=== PATIENT | male | born 1955 | race Caucasian/White ===

== ENCOUNTER 2022-05-28 11:21 | Inpatient (IN) ==
--- NOTE | 2022-05-28 11:36 | Emergency Department Note ---
History of Present Illness General Chief Complaint: Chest Pain Stated Complaint: chest pain Time Seen by Provider: 05/28/22 11:23 History of Present Illness Provider Complaint: chest pain Onset (ago): hour(s) (1.5) Duration: improved Onset: during rest Pain Location: substernal Pain Radiation: LUE Severity: similar to previous episodes (similar to previous [place]) Maximum Pain Intensity: 10 Current Pain Intensity: 1 Quality: + heaviness Relieved By: + nitroglycerin Exacerbated By: + nothing Context: no recent illness, no recent surgery, no recent immobilization, no recent travel, no trauma/injury or no new medications Associated symptoms: no nausea, no diaphoresis, no dyspnea, no sense of impending doom, no syncope, no palpitations, no fever, no cough or no leg swelling Treatments prior to arrival: aspirin and nitroglycerin Past Med/Surg History Medical History CAD (coronary artery disease) HLD (hyperlipidemia) HTN (hypertension) Surgical History H/O heart artery stent Family History Other Coronary heart disease Social History Smoking Status: Smoker, status unknown Review of Systems A total of 10 systems reviewed and were otherwise negative Physical Exam Vital Signs Vital Signs - 24 hr 05/28/22 11:33 05/28/22 11:42 05/28/22 11:42 Temperature 37 C Temperature Source Oral Pulse Rate 53 L Pulse Rate [Apical] 49 L Pulse Rhythm Pulse Rhythm [Apical] Regular Respiratory Rate 16 16 Respiratory Depth Normal Blood Pressure 162/86 H Blood Pressure [Left Arm] 164/89 H Blood Pressure Mean 111 Blood Pressure Mean [Left Arm] 114 Pulse Oximetry 95 95 95 Oxygen Delivery Method Room Air Room Air Room Air Oxygen Flow Rate 0 Sepsis Recent Fever Within 48 Hours No Sepsis New/Unexplained Change in Mental Status No Sepsis Action Taken by Nursing No Action Required 05/28/22 11:42 Temperature Temperature Source Pulse Rate 62 Pulse Rate [Apical] Pulse Rhythm Regular Pulse Rhythm [Apical] Respiratory Rate 16 Respiratory Depth Blood Pressure Blood Pressure [Left Arm] Blood Pressure Mean Blood Pressure Mean [Left Arm] Pulse Oximetry 95 Oxygen Delivery Method Room Air Oxygen Flow Rate Sepsis Recent Fever Within 48 Hours Sepsis New/Unexplained Change in Mental Status Sepsis Action Taken by Nursing Physical Exam GENERAL: He is oriented to person, place, and time. He appears well-developed and well-nourished. He does not appear distressed. HENT: Exam performed. - Head: Normocephalic and atraumatic. - Right Ear: External ear normal. No mastoid tenderness. - Left Ear: External ear normal. No mastoid tenderness. - Mouth/Throat: The oropharynx is clear and moist. No trismus in the jaw. No dental abscesses or uvula swelling. No oropharyngeal exudate or tonsillar abscesses. EYES: Conjunctivae and EOM are normal. Pupils are equal, round, and reactive to light. Right eye exhibits no discharge. Left eye exhibits no discharge. No scleral icterus. NECK: Normal range of motion. Neck supple. No JVD present. No spinous process tenderness present. No carotid bruit present. No rigidity. No tracheal deviation and normal range of motion present. No Brudzinski's sign and no Kernig's sign noted. CV: Normal rate, regular rhythm, normal heart sounds and intact distal pulses. There is no peripheral edema. Palpable radial pulses bue. PULM/CHEST: Effort normal and breath sounds normal. No respiratory distress. No stridor. He has no wheezes. He has no rales. - Chest Wall: He exhibits no tenderness. ABD: The abdomen is soft. Bowel sounds are normal. He has no distension. No mass is present. There is no tenderness. There is no rebound, no guarding, no M urphy's sign and no tenderness at McBurney's point. Rovsig negative. MUSC/SKEL: Normal range of motion. There is no peripheral edema, tenderness or deformity. LYMPH: No cervical adenopathy. NEURO: He is alert and oriented to person, place, and time. He has normal strength. No cranial nerve deficit or sensory deficit. Coordination and gait normal. GCS eye subscore is 4. GCS verbal subscore is 5. GCS motor subscore is 6. Cerebellar tests wnl. SKIN: Skin is warm and dry. He is not diaphoretic. PSYCH: He has a normal mood and affect. Behavior is normal. Judgment and thought content normal. Course Course 1123: The patient was evaluated in room B6. A complete history and physical exam was performed Cardiac monitoring: An order was placed for continuous cardiac monitoring. The monitor shows a rate of 50 with sinus rhythm 1255: Vital signs stable. Labs within normal limits with exception of high- sensitivity troponin minimally elevated 20.3. Patient has a high heart score. [facility] Yunior ARCE notified to admit to Dr. Tripp team. HEART Score for Major Cardiac Events from [email or web address] on 05/28/2022 All calculations should be rechecked by clinician prior to use RESULT SUMMARY: 8 points High Score (7-10 points) Risk of MACE of 50-65%. INPUTS: History > 2 = Highly suspicious EKG > 1 = Non-specific repolarization disturbance Age > 2 = >=5 Risk factors > 2 = >= risk factors or history of atherosclerotic disease Initial troponin > 1 = 13 normal limit Medical Decision Making Laboratory Data Result diagrams: 05/28/22 11:30 05/28/22 11:30 Labs: Lab Results 05/28/22 05/28/22 05/28/22 Range/Units 11:30 11:30 11:43 WBC 8.04 (4.8-10.8) K/ul RBC 3.91 L (4.63-6.08) M/uL Hgb 11.9 L (14.0-18.0) g/dl Hct 36.2 L (40.1-51.0) % MCV 92.6 (80.0-100.0) fL MCH 30.4 (25.0-34.0) pg MCHC 32.9 (32.0-36.0) g/dL RDW Std Deviation 45.7 (36.4-46.3) fL RDW Coeff of Belen 13.3 (11.5-14.5) % Plt Count 200 (130-400) K/uL MPV 9.4 (9.4-12.4) fL Immature Gran % (Auto) 0.4 % Neut % (Auto) 77.9 % Lymph % (Auto) 14.8 % Hart % (Auto) 5.8 % Eos % (Auto) 0.6 % Baso % (Auto) 0.5 % Neut # (Auto) 6.26 (1.4-6.5) K/uL Lymph # (Auto) 1.19 L (1.2-3.4) K/uL Hart # (Auto) 0.47 (0.24-0.82) K/uL Eos # (Auto) 0.05 (0-0.50) K/uL Baso # (Auto) 0.04 (0-0.2) K/uL Immature Gran # (Auto) 0.03 H (0.00-0.02) K/uL Sodium 138 (136-145) mmol/L Potassium 3.7 (3.5-5.1) mmol/L Chloride 110 H (98-107) mmol/L Carbon Dioxide 21 (21-32) mmol/L Anion Gap 7 (3-11) BUN 11 (6-23) mg/dl Creatinine 0.75 (0.6-1.4) mg/dl Est Cr Clr Drug Dosing 81.9 ml/min Est GFR ( Amer) 111.6 ml/min Est GFR (Non-Af Amer) 96.3 ml/min BUN/Creatinine Ratio 14.7 (10-20) Glucose 87 (70-99(Fasting)) mg/dl Calcium 8.0 L (8.5-10.1) mg/dl Troponin I High Sens 20.3 H (0-20) pg/ml Lipase 11 (11-82) U/L SARS-CoV-2, RNA, NAAT NEGATIVE (NEGATIVE) Imaging Data Chest x-ray: Radiologist's impression: Chest X-Ray 05/28/22 11:29 XR chest 1V portable CLINICAL HISTORY: Chest Pain. COMPARISON STUDY: No previous studies for comparison. TECHNIQUE: 1 view of the chest FINDINGS: Single frontal view of the chest demonstrates the cardiomediastinal silhouette to be within normal limits. The lungs are clear of alveolar opacities. There is no evidence for pleural effusion. There is no evidence for vascular congestion. There is no acute osseous pathology. IMPRESSION: 1. No acute cardiopulmonary disease. ACT 112: Negative or not required by law. Electronically signed by: Richar Morelos M.D. 05/28/2022 12:20 PM ECG Data Additional Comments: EKG #1 at 1128: Sinus bradycardia with a rate of 53. NJ QRS and QTc intervals within normal limits. No ST elevation or ST depression. EKG #2 at 1142: Sinus rhythm with rate of 52. NJ QRS and QTc intervals are within normal limits. No ST elevation or ST depression. [facility] Narrative 1123: The patient was evaluated in room B6. A complete history and physical exam was performed Cardiac monitoring: An order was placed for continuous cardiac monitoring. The monitor shows a rate of 50 with sinus rhythm 1255: Vital signs stable. Labs within normal limits with exception of high- sensitivity troponin minimally elevated 20.3. Patient has a high heart score. Patient will be admitted to the [facility] hospitalist team Yunior ARCE notified to admit to Dr. Tripp team. HEART Score for Major Cardiac Events from [email or web address] on 05/28/2022 All calculations should be rechecked by clinician prior to use RESULT SUMMARY: 8 points High Score (7-10 points) Risk of MACE of 50-65%. INPUTS: History > 2 = Highly suspicious EKG > 1 = Non-specific repolarization disturbance Age > 2 = >=5 Risk factors > 2 = >= risk factors or history of atherosclerotic disease Initial troponin > 1 = 13 normal limit Impression & Plan Chest pain Discharge Plan Visit Data Chief Complaint: Chest Pain Stated Complaint: chest pain ED Provider: Ramez Hidalgo Discharge Problem: Chest pain Patient Disposition: Admitted As Inpatient Forms Stand Alone Forms: My [facility] Referrals Referrals: PCP,NO [Primary Care Provider] -
[2022-05-28 11:50] LABS: Basophils # (auto) 0.04 K/uL (0-0.2); Basophils % (auto) 0.5 %; Eosinophils # (auto) 0.05 K/uL (0-0.50); Eosinophils % (auto) 0.6 %; Hematocrit (blood only) 36.2 % (40.1-51.0); Hemoglobin 11.9 g/dl (14.0-18.0); Immature Granulocytes # (auto) 0.03 K/uL (0.00-0.02); Immature Granulocytes % (auto) 0.4 %; Lymphocytes # (auto) 1.19 K/uL (1.2-3.4); Lymphocytes % (auto) 14.8 %; Mean Corpuscular Hemoglobin 30.4 pg (25.0-34.0); Mean Corpuscular Hgb Conc 32.9 g/dL (32.0-36.0); Mean Corpuscular Volume 92.6 fL (80.0-100.0); Mean Platelet Volume 9.4 fL (9.4-12.4); Monocytes # (auto) 0.47 K/uL (0.24-0.82); Monocytes % (auto) 5.8 %; Neutrophils # (auto) 6.26 K/uL (1.4-6.5); Neutrophils % (auto) 77.9 %; Platelet Count 200 K/uL (130-400); RDW Coefficient of Variation 13.3 % (11.5-14.5); RDW Standard Deviation 45.7 fL (36.4-46.3); Red Blood Count 3.91 M/uL (4.63-6.08); White Blood Count 8.04 K/ul (4.8-10.8)
[2022-05-28 12:11] LABS: BUN Creatinine Ratio 14.7 (10-20); Creatinine Clr Calc Pharmacy 81.9 ml/min; Est GFR (African American) 111.6 ml/min; Est GFR (Non-African American) 96.3 ml/min; Potassium 3.7 mmol/L (3.5-5.1)
[2022-05-28 12:16] LABS: Troponin I High Sensitivity 20.3 pg/ml (0-20)
--- NOTE | 2022-05-28 12:22 | XRay Report ---
XR chest 1V portable CLINICAL HISTORY: Chest Pain. COMPARISON STUDY: No previous studies for comparison. TECHNIQUE: 1 view of the chest FINDINGS: Single frontal view of the chest demonstrates the cardiomediastinal silhouette to be within normal li mits. The lungs are clear of alveolar opacities. There is no evidence for pleural effusion. There is no evidence for vascular congestion. There is no acute osseous pathology. IMPRESSION: 1. No acute cardiopulmonary disease. ACT 112: Negative or not required by law. Electronically signed by: Richar Morelos M.D. 05/28/2022 12:20 PM
--- NOTE | 2022-05-28 13:50 | History & Physical Report ---
Date of Service May 28, 2022 Assessment & Plan (1) Chest pain: Plan: Patient presents with chest pain that occurred at rest with burning sensation and has some reproducible aspects to it at this time. - DDX: angina vs unstable angina- peak onset at 10-1030 am vs. non cardiac chest pain (MSK/GI) - ECHO now to evaluate for RWMA - Trend HScTNI and ECG - Repeat HScTNI 259.4 4 at 4 hours post maximal pain - GI cocktail now - HScTNI increased ECG without acute changes- Heparin infusion - Consult Cardiology- appreciate assistance - Likely Cath in AM - NPO after midnight Continue Metoprolol (2) Elevated troponin: Plan: Second HScTNI elevated to 259.4 from 23 - ECG without STEMI - NSTEMI likely continue to trend ECG and HScTNI - As above (3) CAD (coronary artery disease): Plan: CAD- cath report obtained [facility] attached to hard chart- 11/04/2016 - Stent noted to RCA - is on Eliquis with no other antiplatelet medication - continue BP control - 70% D1 60% LAD with otherwise interpreted as minor luminal irregularities. 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 Will place consult to Case Management to assist with PCP History of Present Illness Primary Care Provider: NO PCP 67 YOM with medical history of: CAD, DE with stent to "right side x2" approx 15 years ago, blood clots to right leg "8 or 9" and is on Eliquis, spinal surgery 04/10, HTN, HLD, current every day smoker. Patient is not from the area so have no records to review at this time. Do not have any other ECG or ECHO available for review. Patient came to the EMD today for complaints of chest pain that s tarted around 930 or 1000 this morning while he was sitting and watching TV. Reports that it originally started as a burning sensation in his throat and then turned into a pressure and pain in the center of his chest radiating out to each side. No radiation to back or into the shoulders or down the arm. Was not associated with n/v, diaphoresis, jaw pain. He rated the pain as a pressure that increased in intensity to 7-8. He called EMS and was given [address] to the EMD and aspirin. He now feels that it just "hurts" and has some reproducible aspect but states this is not what it felt like this morning. He was given Morphine in the EMD which he feels made the pain go away. He had routine labs performed to include HScTNI, ECG, and CXR. His ECG has non specific ST changes. His HScTNI was drawn at 1100 and was 20.3. Hospitalist service was consulted for admission. Will obtain ECHO now, repeat his HScTNI. He follows with [facility] in [place] [phone]. Have reached out to get his records faxed over. Will admit to PCU telemetry for rule out DE and further risk stratify. Patient will be moving to the area, so likely will need Primary Care and Cardiology physicians upon discharge. COVID test on admission is: NEGATIVE Allergies Allergy/AdvReac Type Severity Reaction Status Date / Time No Known Allergies Allergy Unverified 05/28/22 13:51 Home Medications Medication Instructions Recorded Confirmed Type apixaban 2.5 mg tablet (Eliquis) 2.5 mg PO BID 05/28/22 05/28/22 History aspirin 81 mg tablet,delayed 324 mg PO .TODAY 05/28/22 05/28/22 History release divalproex 500 mg tablet,delayed 500 mg PO Q12 05/28/22 05/28/22 History release ferrous sulfate 325 mg (65 mg 325 mg PO DAILY 05/28/22 05/28/22 History iron) tablet (FeroSul) ketorolac 10 mg tablet 10 mg PO Q6H PRN Pain 05/28/22 05/28/22 History metoprolol succinate 25 mg 25 mg PO DAILY 05/28/22 05/28/22 History tablet,extended release 24 hr oxycodone 5 mg tablet 5 mg PO Q8H PRN Pain 05/28/22 05/28/22 History pramipexole 1.5 mg tablet (Mirapex) 1.5 mg PO TID 05/28/22 05/28/22 History Past Med/Surg History Medical History (Updated 05/28/22 @ 15:37 by BRY Pham) CAD (coronary artery disease) Chronic low back pain DVT (deep venous thrombosis) HLD (hyperlipidemia) HTN (hypertension) Neuropathy Surgical History (Updated 05/28/22 @ 14:57 by BRY Pham) H/O heart artery stent H/O total knee replacement Previous back surgery Family History Other Coronary heart disease Social History (Updated 05/28/22 @ 14:58 by BRY Pham) Smoking Status: Smoker, status unknown Tobacco Type: Cigarettes and Cigars packs per day: 0.5; Years Smoked: 20; Cigarettes Per Day: 10; Second Hand Exposure: Yes; Do You Dip or Chew Tobacco: No; Hx Alcohol Use: No Hx Substance Use: No Preferred Language: Bengali Communication Ability: Effective Tilting Head Band Sawyer Required: No Beliefs That Will Affect Care: None Current Living Situation: Significant Other Other Information That Helps Us Care for You: No Feels Safe at Home: Yes Safety Concerns: Feels Safe At This Time Review of Systems Review of Systems: REVIEW OF SYSTEMS: Constitutional: No fever, sweats or chills Eyes: No diplopia, no worsening or blurred vision ENT: normal hearing, no trouble swallowing Respiratory: No cough, sputum, dyspnea at rest or on exertion Cardiovascular: (+) chest pain, tightness or palpitations Abdomen: No pain, nausea, vomiting, diarrhea or constipation Musculoskeletal: No joint pain, calf pain, swelling Neurologic: (+) RLS, neuropathy to leg and feet weakness, numbness/tingling, or balance problems Psychiatric: No anxiety or depression Skin: No rash or itch Physical Exam Physical Exam: PHYSICAL EXAM: General: awake, alert, no apparent distress Head: Normocephalic, atraumatic ENT: PERRL, EOMI, no pharyngeal exudate, mucous membranes moist Neuro: AAO x 3, speech clear and appropriate, strength intact bilaterally 5/5, sensation intact and equal all extremities and dermatomes, no pronator drift Chest: equal rise and fall of the chest, no accessory muscle use, no heaves or thrills, Clear to auscultation, on room air, Cardiac: Regular rate and rhythm, telemetry reviewed- sinus to sinus carlos, skin warm dry, cap refill <3 seconds, peripheral pulses +2 no JVD, no murmur, no edema GI: NABS x 4 quadrants, soft, nontender to palpation, no rebound, guarding or tenderness : Spontaneously voiding, no pain, no CVA tenderness, MSK: Chest pain reproducible at this time 2-3 intercostal, pain that he had this morning has not returned Psych: Normal mood and affect Skin: no rash or erythema Results & Data Results & Data ([facility]) Vital Signs (Past 12 Hours) Vital Signs Temp Pulse Pulse Resp BP BP Pulse Ox 05/28/22 11:42 62 16 95 05/28/22 11:42 49 L 16 164/89 H 95 05/28/22 11:42 95 05/28/22 11:33 37 C 53 L 16 162/86 H 95 O2 Del Method O2 Flow Rate 05/28/22 11:42 Room Air 05/28/22 11:42 Room Air 05/28/22 11:42 Room Air 0 05/28/22 11:33 Room Air Laboratory Results Abnormal lab results 05/28/22 05/28/22 Range/Units 11:30 11:30 RBC 3.91 L (4.63-6.08) M/uL Hgb 11.9 L (14.0-18.0) g/dl Hct 36.2 L (40.1-51.0) % Lymph # (Auto) 1.19 L (1.2-3.4) K/uL Immature Gran # (Auto) 0.03 H (0.00-0.02) K/uL Chloride 110 H (98-107) mmol/L Calcium 8.0 L (8.5-10.1) mg/dl Troponin I High Sens 20.3 H (0-20) pg/ml Diagnostic Findings Chest X-Ray 05/28/22 11:29 XR chest 1V portable CLINICAL HISTORY: Chest Pain. COMPARISON STUDY: No previous studies for comparison. TECHNIQUE: 1 view of the chest FINDINGS: Single frontal view of the chest demonstrates the cardiomediastinal silhouette to be within normal limits. The lungs are clear of alveolar opacities. There is no evidence for pleural effusion. There is no evidence for vascular congestion. There is no acute osseous pathology. IMPRESSION: 1. No acute cardiopulmonary disease. ACT 112: Negative or not required by law. Electronically signed by: Richar Morelos M.D. 05/28/2022 12:20 PM Medications Administered Home Medications apixaban 2.5 mg tablet (Eliquis) 2.5 mg PO BID 05/28/22 [History Confirmed 0 05/28/22] aspirin 81 mg tablet,delayed release 324 mg PO .TODAY 05/28/22 [History Confirmed 05/28/22] divalproex 500 mg tablet,delayed release 500 mg PO Q12 05/28/22 [History Confirmed 05/28/22] ferrous sulfate 325 mg (65 mg iron) tablet (FeroSul) 325 mg PO DAILY 05/28/22 [History Confirmed 05/28/22] ketorolac 10 mg tablet 10 mg PO Q6H PRN Pain 05/28/22 [History Confirmed 05/28/22] metoprolol succinate 25 mg tablet,extended release 24 hr 25 mg PO DAILY 05/28/22 [History Confirmed 05/28/22] oxycodone 5 mg tablet 5 mg PO Q8H PRN Pain 05/28/22 [History Confirmed 05/28/22] pramipexole 1.5 mg tablet (Mirapex) 1.5 mg PO TID 05/28/22 [History Confirmed 05/28/22] Active Medications Acetaminophen (Acetaminophen 325 Mg Tab) 650 mg PO Q4H PRN PRN Reason: Pain or Fever Stop: 06/27/22 14:01 Apixaban (Apixaban 2.5 Mg Tab) 2.5 mg PO BID [facility] Stop: 06/27/22 20:59 Aspirin (Aspirin 81 Mg Ectab) 81 mg PO QAM [facility] Stop: 06/28/22 08:59 Divalproex Sodium (Divalproex Delay Release 500 Mg Tab) 500 mg PO Q12 [facility] Stop: 06/27/22 20:59 Ketorolac Tromethamine (Ketorolac Tromethamine 10 Mg Tablet) 10 mg PO Q6H PRN PRN Reason: Pain Stop: 06/02/22 14:27 Metoprolol Succinate (Metoprolol Succ 25mg Ext Rel Tab) 25 mg PO DAILY [facility] Stop: 06/27/22 14:29 Nitroglycerin (Nitroglycerin Sl 0.4 Mg/Tab Tab) 0.4 mg SL UD PRN PRN Reason: Chest Pain Stop: 06/27/22 14:01 Oxycodone HCl (Oxycodone Hcl Ir 5 Mg Tab (Immediate Release)) 5 mg PO Q8H PRN PRN Reason: Pain Stop: 06/11/22 14:27 Pantoprazole Sodium (Pantoprazole 40 Mg Tab) 40 mg PO QAM [facility] Stop: 06/27/22 14:29 Pramipexole Dihydrochloride (Pramipexole Dihydrochlo 0.5 Mg Tab) 1.5 mg PO TID [facility] Stop: 06/27/22 20:59 ECG Additional Comments: Sinus bradycardia Nonspecific ST abnormality Abnormal ECG No previous ECGs available Sinus bradycardia Incomplete right bundle branch block Cannot rule out Anterior infarct , age undetermined Abnormal ECG When compared with ECG of 28-MAY-2022 11:42, (unconfirmed) No significant change was found- 28-MAY-2022 15:14:10 Code Status & VTE Plan Code Status CODE: DNR/DNI VTE: SCDs/Eliquis Supervising Physician Co-Signing Physician Notes Reviewed documentation and work-up, discussed with UMBRELLA SUPERVISOR. Agree with his note above. Patient is here for chest pain. We did obtain old records from [facility] as patient had a cardiac catheterization earlier this year, had multiple areas of atherosclerotic plaques as noted in the report. Patient had 2 sets of troponins, the second is markedly elevated. Plan to start heparin drip, cardiology is aware with plans for repeat cardiac catheterization in the morning. Continue other care as documented above. PG Care Time/CCT Total # of Minutes Spent Total Time Spent with Patient: Total time spent is greater than 50% in coordination of care (as documented) at patient's floor/unit and/or counseling patient: Coding Level of Care Code INT OBSERVATION CARE 70M LVL 3 Diagnoses Chest pain R07.9 Chest pain type: unspecified Elevated troponin R77.8 CAD (coronary artery disease) I25.10 HLD (hyperlipidemia) E78.5 HTN (hypertension) I10 Chronic low back pain M54.50; G89.29 Neuropathy G62.9 DVT (deep venous thrombosis) I82.409 (1) Chest pain Chest pain type: unspecified Qualified Code(s): R07.9 - Chest pain, unspecified
[2022-05-28] MEDS ORDERED: NITROGLYCERIN SL 0.4 MG/TAB TAB SL PRN (14:02)
[2022-05-28] MEDS ORDERED: ACETAMINOPHEN 325 MG TAB PO PRN (14:02)
[2022-05-28] MEDS ORDERED: APIXABAN 2.5 MG TAB PO ONE (14:26)
[2022-05-28] MEDS ORDERED: KETOROLAC TROMETHAMINE 10 MG TABLET PO PRN (14:28)
[2022-05-28] MEDS ORDERED: oxyCODONE HCL IR 5 MG TAB (IMMEDIATE RELEASE) PO PRN (14:28)
[2022-05-28] MEDS ORDERED: ALUMINUM/MAGNESIUM SUSP 18 ML, LIDOCAINE VISCOUS 2% SOLN 6 ML, BARCODE IDENTIFIER 1 EACH PO ONE (14:29)
[2022-05-28] MEDS ORDERED: METOPROLOL SUCC 25MG EXT REL TAB PO SCH (14:30)
[2022-05-28] MEDS ORDERED: ASPIRIN 81 MG ECTAB PO SCH (14:30)
[2022-05-28] MEDS ORDERED: GI COCKTAIL ED USE PO ONE (14:45)
[2022-05-28] MEDS ORDERED: Heparin IV Adult Wt-Based Low-Dose WITH Bolus Protocol IV SCH (15:10)
[2022-05-28] MEDS ORDERED: NITROGLYCERIN 2% OINTMENT 30GM TUBE EXT SCH (16:30)
[2022-05-28] MEDS ORDERED: HEPARIN SOD (PORCINE) 1000 UNIT/ML IV ONE (16:45)
[2022-05-28] MEDS ORDERED: HEPARIN SODIUM/DEXTROSE 25,000 UNITS/500 ML BAG IV SCH (16:45)
[2022-05-28] MEDS: PANTOprazole 40 MG TAB PO SCH (16:55)
--- NOTE | 2022-05-28 17:08 | Cardiology Consultation ---
Date of Consultation May 28, 2022 Assessment & Plan (1) Acute coronary syndrome: (2) Elevated troponin: (3) CAD (coronary artery disease): (4) H/O heart artery stent: (5) HTN (hypertension): (6) HLD (hyperlipidemia): (7) Tobacco abuse: Plan ASSESSMENT/PLAN: 1. Acute coronary syndrome: Presentation consistent with acute coronary syndrome. Still has low level angina but much improved. Recommend nitroglycerin paste and heparin drip to start immediately. Continue aspirin. High-intensity statin therapy. Had minor inferior ST elevation initially which has since resolved. Recommend cardiac catheterization. Risks and benefits discussed with him in detail. He was made aware that CT surgery is not available at this facility. Would recommend urgent cardiac catheterization if continues to have chest discomfort despite medical therapy. Otherwise, cardiac catheterization will likely be performed tomorrow as he is still within 24 hours of his most recent dose of Eliquis. 2. CAD s/p prior RCA PCI: Continue medical therapy as above. He has not been taking aspirin. Recommend aspirin 81 mg daily indefinitely given prior PCI. Continue beta-drew. Recommend BARB-inhibitor. Recommend high-intensity statin therapy. Start Crestor 40 mg daily. 3. Hypertension: Blood pressure elevated. Blood pressure should improve with nitroglycerin paste. Consider BARB-inhibitor. 4. Dyslipidemia: Will initiate high-intensity statin therapy. Goal LDL < 70. 5. Tobacco abuse: Recommended that he stop smoking. 6. Disposition: Cardiology will continue to follow along. Patient care discussed with hospitalist service, Yosi Pulido. Highly complex medical issues. Thank you for allowing me to participate in the care of your patient. Please call for any other questions or concerns. Sincerely, José Miguel López M.D. History of Present Illness Reason for Consultation: Chest pain and elevated troponin Requesting Physician: Giovanny Tripp DO Attending Physician: Giovanny Tripp DO History of Present Illness Mr. Naqvi is a very pleasant 67-year-old gentleman with history significant for CAD s/p RCA PCI x 2, myocardial infarction, hypertension, dyslipidemia, tobacco abuse, and right lower extremity DVT on long-term anticoagulation therapy. He recently moved to this area from [place]. He received his cardiology care at [facility] in [place], [place]. He states that he had myocardial infarction x2 in approximately 1999. He received a stent each time, stating that it was in the same blood vessel. He has stent cards however they were not available at the time of this consultation. He had been on Crestor in the past and tolerated it well but states that with insurance changes and changing in physicians, he has not been on a statin for approximately 3 years. He has not been on aspirin for a few years as well. He is on long-term anticoagulation therapy for right lower extremity DVTs following a left leg surgery. He states that he was seen by Hematology. He does not recall much detail about the symptoms involving prior ND. This morning while in bed at approximately 10:00 a.m., he developed a substernal chest discomfort that radiated across his chest. It began as a burning sensation, transition to a sharp pain and then a pressure pain. He states that the pressure was intense. It was associated with diaphoresis and shortness of breath. He called EMS and received nitroglycerin x2 without improvement. He had a third nitroglycerin with some improvement, a fourth with even more improvement and then 2 sprays which nearly resolved the pain. Morphine in the emergency department also helped but he has had constant pain since approximately 10:00 a.m., currently rating 1 or 2/10. He denies syncope, near-syncope, melena, hematochezia, hematuria, orthopnea, palpitations, edema, or recent exertional symptoms. He has had the following studies/procedures: 1. Cardiac catheterization and RCA PCI x2 approximately 20 years ago during separate procedures in the setting of myocardial infarction. 2. Cardiac catheterization 11/04/2016 [facility] ([place], [place]): Mid LAD 60%. D1 ostial 75%. Proximal RCA stent with 30% in stent restenoses. Mid RCA stent 30%. EF 55%. Review of systems: As above. Review of systems otherwise negative/unremarkable. Family history: No known premature CAD. Social history: Started smoking at approximately 19 years of age. Smoked up to 1 pack per day, currently smoking 5-10 cigarettes per day and occasional cigars. No significant alcohol consumption. He is . He lives with his girlfriend. Recently moved to this area from [place], [place] and is looking for a home. He is retired from [employer] the [employer]. He has 5 children. He was unaccompanied in the emergency department. Allergies Allergy/AdvReac Type Severity Reaction Status Date / Time No Known Allergies Allergy Unverified 05/28/22 13:51 Home Medications Medication Instructions Recorded Confirmed Type apixaban 2.5 mg tablet (Eliquis) 2.5 mg PO BID 05/28/22 05/28/22 History aspirin 81 mg tablet,delayed 324 mg PO .TODAY 05/28/22 05/28/22 History release divalproex 500 mg tablet,delayed 500 mg PO Q12 05/28/22 05/28/22 History release ferrous sulfate 325 mg (65 mg 325 mg PO DAILY 05/28/22 05/28/22 History iron) tablet (FeroSul) ketorolac 10 mg tablet 10 mg PO Q6H PRN Pain 05/28/22 05/28/22 History metoprolol succinate 25 mg 25 mg PO DAILY 05/28/22 05/28/22 History tablet,extended release 24 hr oxycodone 5 mg tablet 5 mg PO Q8H PRN Pain 05/28/22 05/28/22 History pramipexole 1.5 mg tablet (Mirapex) 1.5 mg PO TID 05/28/22 05/28/22 History Patient History Medical History (Updated 05/28/22 @ 17:35 by Rajiv López MD) CAD (coronary artery disease) Chronic low back pain DVT (deep venous thrombosis) HLD (hyperlipidemia) HTN (hypertension) Neuropathy Restless leg syndrome Surgical History (Updated 05/28/22 @ 17:24 by Rajiv López MD) H/O heart artery stent H/O total knee replacement Previous back surgery Family History Other Coronary heart disease Social History (Updated 05/28/22 @ 14:58 by BRY Pham) Smoking Status: Smoker, status unknown Tobacco Type: Cigarettes and Cigars packs per day: 0.5; Years Smoked: 20; Cigarettes Per Day: 10; Second Hand Exposure: Yes; Do You Dip or Chew Tobacco: No; Hx Alcohol Use: No Hx Substance Use: No Preferred Language: Kazakh Communication Ability: Effective Oracle Ebs Developer Required: No Beliefs That Will Affect Care: None Current Living Situation: Significant Other Other Information That Helps Us Care for You: No Feels Safe at Home: Yes Safety Concerns: Feels Safe At This Time Physical Exam Physical Exam: Gen.: No acute distress. Alert and oriented. HEENT: Anicteric sclera. Neck: No JVD. No bruits. Normal carotid upstrokes bilaterally. Cardiac: PMI was nondisplaced. No ventricular heave. Regular with mild bradycardia in the 50s. Normal S1-S2. No murmurs, rubs, or gallops. Pulmonary: Clear to auscultation bilaterally without wheezes, rales, or rhonchi. Abdomen: Soft, nontender, nondistended, with normoactive bowel sounds. No bruits noted. Extremities: 2+ radial pulses bilaterally. 2+ posterior tibialis pulses bilaterally. No edema or cyanosis. Psychiatric: Affect appears appropriate. Chest: Tender to palpation, but different than presenting chest discomfort per patient. Results & Data ([facility]) Vital Signs (Past 12 Hours) Vital Signs Temp Pulse Pulse Resp BP BP Pulse Ox 05/28/22 15:44 52 L 18 96 05/28/22 15:44 46 L 18 170/104 H 96 05/28/22 15:35 48 L 16 170/104 H 95 05/28/22 11:42 62 16 95 05/28/22 11:42 49 L 16 164/89 H 95 05/28/22 11:42 95 05/28/22 11:33 37 C 53 L 16 162/86 H 95 O2 Del Method O2 Flow Rate 05/28/22 15:44 Room Air 05/28/22 15:44 05/28/22 15:35 Room Air 05/28/22 11:42 Room Air 05/28/22 11:42 Room Air 05/28/22 11:42 Room Air 0 05/28/22 11:33 Room Air Laboratory Results Laboratory Results - last 24 hr 05/28/22 05/28/22 05/28/22 11:30 11:30 11:30 WBC 8.04 RBC 3.91 L Hgb 11.9 L Hct 36.2 L MCV 92.6 MCH 30.4 MCHC 32.9 RDW Std Deviation 45.7 RDW Coeff of [place] 13.3 Plt Count 200 MPV 9.4 Immature Gran % (Auto) 0.4 Neut % (Auto) 77.9 Lymph % (Auto) 14.8 [place] % (Auto) 5.8 Eos % (Auto) 0.6 Baso % (Auto) 0.5 Neut # (Auto) 6.26 Lymph # (Auto) 1.19 L [place] # (Auto) 0.47 Eos # (Auto) 0.05 Baso # (Auto) 0.04 Immature Gran # (Auto) 0.03 H PT Pending INR Pending APTT Pending PTT Ratio Pending Sodium 138 Potassium 3.7 Chloride 110 H Carbon Dioxide 21 Anion Gap 7 BUN 11 Creatinine 0.75 Est Cr Clr Drug Dosing 81.9 Est GFR ( Amer) 111.6 Est GFR (Non-Af Amer) 96.3 BUN/Creatinine Ratio 14.7 Glucose 87 Calcium 8.0 L Troponin I High Sens 20.3 H Lipase 11 SARS-CoV-2, RNA, NAAT 05/28/22 05/28/22 11:43 14:00 WBC RBC Hgb Hct MCV MCH MCHC RDW Std Deviation RDW Coeff of [place] Plt Count MPV Immature Gran % (Auto) Neut % (Auto) Lymph % (Auto) [place] % (Auto) Eos % (Auto) Baso % (Auto) Neut # (Auto) Lymph # (Auto) [place] # (Auto) Eos # (Auto) Baso # (Auto) Immature Gran # (Auto) PT INR APTT PTT Ratio Sodium Potassium Chloride Carbon Dioxide Anion Gap BUN Creatinine Est Cr Clr Drug Dosing Est GFR ( Amer) Est GFR (Non-Af Amer) BUN/Creatinine Ratio Glucose Calcium Troponin I High Sens 259.4 H* D Lipase SARS-CoV-2, RNA, NAAT NEGATIVE Diagnostic Findings Chest x-ray 05/28/2022: No acute process per Radiology. ECG personally reviewed: ECG 05/28/2022 11:28 a.m.: Sinus bradycardia 53 beats per minute. Nonspecific ST/T-wave abnormality. Minor ST elevation inferior leads. ECG 05/28/2022 at 11:42 a.m.: Sinus bradycardia 52 beats per minute. Incomplete RBBB. Nonspecific ST/T-wave abnormality. ECG 05/28/2022 at 3:14 p.m.: Sinus bradycardia 53 beats per minute. Incomplete RBBB. Improved ST/T-wave abnormality. ST elevation improved inferior leads. Cardiac catheterization report from [facility] reviewed as noted above in HPI. Prelim echo report 05/28/2022: Some echo images personally reviewed. LV systolic function was normal. RCA wall motion abnormality (unclear if new or chronic given prior RCA infarct). Formal review to follow. Medications Administered Current Inpatient Medications Acetaminophen (Acetaminophen 325 Mg Tab) 650 mg PO Q4H PRN PRN Reason: Pain or Fever Stop: 06/27/22 14:01 Aspirin (Aspirin 81 Mg Ectab) 81 mg PO QAM [facility] Stop: 06/28/22 08:59 Divalproex Sodium (Divalproex Delay Release 500 Mg Tab) 500 mg PO Q12 JOSHUA Stop: 06/27/22 20:59 Heparin Sodium/Dextrose (Heparin Sodium/Dextrose) 25,000 units in 500 mls @ 14 mls/hr IV .Q24H [facility]; Protocol Stop: 06/27/22 16:44 Last Admin: 05/28/22 17:00 Dose: 700 units/hr, 14 mls/hr Metoprolol Succinate (Metoprolol Succ 25mg Ext Rel Tab) 25 mg PO DAILY [facility] Stop: 06/27/22 14:29 Last Admin: 05/28/22 16:55 Dose: 25 mg Nitroglycerin (Nitroglycerin Sl 0.4 Mg/Tab Tab) 0.4 mg SL UD PRN PRN Reason: Chest Pain Stop: 06/27/22 14:01 Nitroglycerin (Nitroglycerin 2% Ointment 30gm Tube) 1 inch EXT Q6H [facility] Stop: 06/27/22 16:29 Last Admin: 05/28/22 16:54 Dose: 1 inch Oxycodone HCl (Oxycodone Hcl Ir 5 Mg Tab (Immediate Release)) 5 mg PO Q8H PRN PRN Reason: Pain Stop: 06/11/22 14:27 Pantoprazole Sodium (Pantoprazole 40 Mg Tab) 40 mg PO QAM [facility] Stop: 06/27/22 14:29 Last Admin: 05/28/22 16:55 Dose: 40 mg Pramipexole Dihydrochloride (Pramipexole Dihydrochlo 0.5 Mg Tab) 1.5 mg PO TID [facility] Stop: 06/27/22 20:59 PG Care Time/CCT Total # of Minutes Spent Total Time Spent with Patient: Total time spent is greater than 50% in coordination of care (as documented) at patient's floor/unit and/or counseling patient: Coding Level of Care Code 86667 Office/OBS Consult Lvl 5 Diagnoses Acute coronary syndrome I24.9 Elevated troponin R77.8 CAD (coronary artery disease) I25.10 H/O heart artery stent Z95.5 HTN (hypertension) I10 HLD (hyperlipidemia) E78.5 Tobacco abuse Z72.0
[2022-05-28 17:21] LABS: Partial Thromboplastin Time 26.2 Seconds (21.0-31.0); Prothrombin Time 11.1 Seconds (9.0-12.0)
[2022-05-28] MEDS ORDERED: hydrALAZINE HCL 20 MG/ML VIAL IV ONE (17:56)
[2022-05-28] MEDS ORDERED: STAT IV Infusion **Titration per Protocol STA (18:07)
[2022-05-28] MEDS ORDERED: lisinopril 5 MG TAB PO ONE ×2 (18:12→21:43)
[2022-05-28] MEDS ORDERED: NITROGLYCERIN/D5W 100MCG/ML 250 ML IV SCH (18:15)
[2022-05-28] MEDS ORDERED: MIDAZOLAM HCL 1 MG/ML 2ML VIAL ONE (19:32)
[2022-05-28] MEDS ORDERED: HEPARIN (PORCINE) 1000 UNIT/ML 10 ML (CATH LAB USE ONLY) ONE (19:32)
[2022-05-28] MEDS ORDERED: fentaNYL citrate 100 MCG/2 ML VIAL ONE (19:33)
[2022-05-28] MEDS ORDERED: NITROGLYCERIN/D5W 100MCG/ML 20ML SYR ONE (19:33)
[2022-05-28] MEDS ORDERED: niCARdipine HCL INJ 2.5 MG/ML 10 ML AMP ONE (19:33)
[2022-05-28] MEDS ORDERED: LIDOCAINE 1% LOCAL 20 ML VIAL ONE (19:42)
--- NOTE | 2022-05-28 19:46 | Post Anesthesia Assessment ---
Date of Service May 28, 2022 Post Sedation Assessment Vital Signs Temp Pulse Pulse Resp BP BP Pulse Ox 05/28/22 18:00 62 18 133/78 98 05/28/22 17:00 98.2 F 64 18 162/88 H 98 05/28/22 15:44 52 L 18 96 05/28/22 15:44 46 L 18 170/104 H 96 05/28/22 15:35 48 L 16 170/104 H 95 05/28/22 11:42 62 16 95 05/28/22 11:42 49 L 16 164/89 H 95 05/28/22 11:42 95 05/28/22 11:33 98.6 F 53 L 16 162/86 H 95 O2 Del Method O2 Flow Rate 05/28/22 18:00 Room Air 05/28/22 17:00 Room Air 05/28/22 15:44 Room Air 05/28/22 15:44 05/28/22 15:35 Room Air 05/28/22 11:42 Room Air 05/28/22 11:42 Room Air 05/28/22 11:42 Room Air 0 05/28/22 11:33 Room Air Recovery Score Activity: Moves 4 extremities Respiration: Deep Breath/Cough Circulation: +/-20% PreAnes Value Consciousness: Fully Awake Oxygen Saturation: O2 needed for >90% Discharge Sedation Level of Care: Fast Track Phase II Post Sedation Plan On clinical assessment, the patient appears to have tolerated the sedation without complications. Patient is recovering as anticipated. Patient will continue to be monitored by nursing and may be discharged when sedation discharge criteria are met per below protocol. Upon Completions of procedure up to 15 minutes continue every 5 minute vital signs and the P.A.R. score; then discharge to a Phase I or Fast Track to Phase II per the following guidelines: * Discharge Patient to appropriate Phase II area if PAR is 8 or greater or return to pre- procedure baseline. The post - procedure orders will be as directed. * If PAR score is less than 8 or not return to pre-procedure baseline then patient will follow Phase I monitoring till PAR is reached for Phase II. The Phase I may be done in procedure room or may call to secure a Phase I area. * If naloxone or flumazenil are used for reversal, hold in Phase I for continued monitoring from when last reversal dose was given for a minimum of 6 0 minutes or longer pending the nurse and/or physician discretion of patient condition before discharge to Phase II. Please call the Sedation Physician to re-evaluate and complete post-note for discharge to Phase II area. Do NOT discharge from procedure sedation or Phase 1 until post- sedation evaluation note is complete by procedure /sedation MD Sedation Discharge Instructions to be given to the patient at discharge to home.
--- NOTE | 2022-05-28 19:47 | Pre Anesthesia Assessment ---
Date of Service May 28, 2022 Pre Sedation Assessment Vital Signs Temp Pulse Pulse Resp BP BP Pulse Ox 05/28/22 18:00 62 18 133/78 98 05/28/22 17:00 98.2 F 64 18 162/88 H 98 05/28/22 15:44 52 L 18 96 05/28/22 15:44 46 L 18 170/104 H 96 05/28/22 15:35 48 L 16 170/104 H 95 05/28/22 11:42 62 16 95 05/28/22 11:42 49 L 16 164/89 H 95 05/28/22 11:42 95 05/28/22 11:33 98.6 F 53 L 16 162/86 H 95 O2 Del Method O2 Flow Rate 05/28/22 18:00 Room Air 05/28/22 17:00 Room Air 05/28/22 15:44 Room Air 05/28/22 15:44 05/28/22 15:35 Room Air 05/28/22 11:42 Room Air 05/28/22 11:42 Room Air 05/28/22 11:42 Room Air 0 05/28/22 11:33 Room Air Cardiovascular RRR, no murmur, no edema Respiratory normal respiratory effort, lungs clear to auscultation Pre-Sedation Airway Assessment Smoking Status: Smoker, status unknown Hx Sleep Apnea: No Hx Difficult Intubation: No Short, Thick Neck: No Thyromental Distance: > or= 3.5 Finger Breadths Oral Cavity: + WNL Mallampati Class: III ASA: ASA3 Procedure Planning Contraindications for Sedation: none Current Medications Reviewed: Yes Notes The planned sedation has been discussed with the patient. Informed Consent was obtained. I have identified the patient, determined the appropriateness of sedation and have assessed the patient immediately prior to the procedure. All medicine(s) and interventions are by my order.
--- NOTE | 2022-05-28 19:48 | Cardiac Catheterization ---
[facility] Data: End Frazer Cardiac Status Clinical evaluation leading to the procedure CAD Presenation: Non STEMI Anginal Classification: CCS IV Diagnostic Physicians Name: Sesar Abbott MD Closure Device Recommendations: PCI without planned CABG Cardiac Cath Procedure Full Procedure Date May 28, 2022 Pre-Procedure Diagnosis Pre-Procedure Diagnosis: Non STEMI AUC Score AUC Score: 8 Post-Procedure Diagnosis Post-Procedure Diagnosis: Severe CAD, Successful PCI and Normal Intracardiac Pressures Procedure(s) Performed Procedure(s) Performed: Coronary Angiography, Left Heart Cath and Drug Eluting Stent Strip Cutter Sesar Abbott MD Glue Reel Operator(s) [place] Estimated Blood Loss Estimated Blood Loss: 15 Medication(s) Medication(s): Fentanyl, Heparin, Lidocaine 1%, Nicardipine, Nitroglycerin and Versed Medication(s): Ticagrelor Summary of Findings Indication: High risk NSTEMI with refractory angina. History of coronary artery disease post ID 20 years ago with 2 stents to RCA Access: 6 Fr right radial artery Catheters: [place], JR4 guide Findings: LM -short, almost separate ostium, no significant disease LAD -medium caliber, 30 to 40% mid segment disease, distal vessel without signif icant disease wraparound apex. D2 with 60% ostial stenosis Circumflex -large caliber, no significant disease, large left PLB without disease. RCA -dominant, proximal to mid stents with 90% in-stent restenosis followed by a 100% acute occlusion at distal aspect of prior stents. LVEDP -16 -- PCI -- Antithrombotic therapy: Heparin, ticagrelor Procedure: RCA cannulated with JR4 guide Pre-procedure flow DELMY 0 Dairy Feed Mixing Operator 50 wire passed across lesion into distal vessel Mid to distal occlusion and earlymid stenosis predilated with 2.5 compliant balloon Mid to distal RCA stented with 3.0 x 38 mm [place] drug-eluting stent Stent post-dilated with 3.5 noncompliant balloon Second ADELAIDA (3.0 x 15 mm Narayan) placed to mid RCA overlapping prior stents and proximal aspect of initial stent placed Stents postdilated with 3.5 NC IC vasodilators administered for spasm Post procedure DELMY 3 flow, stents well expanded with minimal residual stenosis and no apparent cardiac complications. Arterial Closure: TR band Summary: 1. Acute very-late 100% mid RCA stent thrombosis with more proximal severe in- stent restenosis 2. Moderate nonculprit CAD 30 to 40% mid LAD 60% ostial D2 3. Normal intracardiac filling pressure 4. Successful PCI of mid to distal RCA with 2 new overlapping ADELAIDA (3.0 x 15, 3.0 x 38 Narayan; postdilated with 3.5 NC). Current stents overlap prior stents and extend more distally. Recommendations: To ICU for continued monitoring Loaded with ticagrelor 180 mg in End Frazer If needs continued anticoagulation recommend transition to clopidogrel and triple therapy for 2 weeks before discontinuation of aspirin Continue statin, and ASCVD risk factor modification Consult cardiac Rehab Hemodynamics Rest Ao:: 144/84/25 Final Ao: 165/80/98 LV: 124/16 Recommendations Recommendations: PCI without planned CABG Specimens Specimens: None Radiation Exposure (mGy) 1955 Contrast (mls) 80 Drains Drains: none Anesthesia Moderate [id number] Procedural Complication(s) None Disposition ICU I attest to the content of the Intraoperative Record and any orders documented therein. Any exceptions are noted below. [facility] Card Cath Procedure Codes Cardiac Catheterization Procedure 1: Cardiovascular Cath Procedures: 90238 Coronaries and LHC (+/-LV) Moderate Sedation Procedure 1: Sedation/Anesthesia: 25533 Mod Sedation by the same physician;Init15 Min Child Age 5 & Up Procedure 2: Sedation/Anesthesia: 54229 Mod Sedation by the same physician; Ea [id number] Minutes Stenting Procedure 1: Cardiovascular Stent Procedures: 09018 Perc transluminal revascularization of acute sub/total occl, aMI PG Care Time/CCT Total # of Minutes Spent Total Time Spent with Patient: Total time spent is greater than 50% in coordination of care (as documented) at patient's floor/unit and/or counseling patient:
[2022-05-28] MEDS ORDERED: ATROPINE SULFATE 0.1 MG/ML 10ML SYR IV ONE (20:04)
--- NOTE | 2022-05-28 20:18 | XCELERA ---
[id number] \\[id number]\[id number]
[2022-05-28] MEDS ORDERED: TICAGRELOR 90 MG TAB ONE (20:32)
[2022-05-28] MEDS ORDERED: ONDANSETRON INJ 2 MG/ML 2 ML VIAL IV PRN (20:46)
[2022-05-28] MEDS ORDERED: APIXABAN 2.5 MG TAB PO SCH (21:00)
[2022-05-28] MEDS ORDERED: SODIUM CHLORIDE 0.9% 1000ML 1,000 ML IV SCH (21:00)
[2022-05-28] MEDS: METOPROLOL TARTRATE 25 MG TAB PO SCH (21:33)
[2022-05-28] MEDS ORDERED: ACETAMINOPHEN 500 MG TAB PO PRN (21:37)
[2022-05-28] MEDS: DIVALPROEX DELAY RELEASE 500 MG TAB PO SCH (21:44)
[2022-05-28] MEDS: PRAMIPEXOLE DIHYDROCHLO 0.5 MG TAB PO SCH (21:45)
[2022-05-28] MEDS: ROSUVASTATIN CALCIUM 20 MG TAB PO SCH (21:45)
--- NOTE | 2022-05-28 21:45 | Critical Care Consultation ---
Date of Consultation May 28, 2022 Assessment & Plan (1) Admitted to intensive care unit: Reason Critically Ill: 67-year-old male presenting with acute coronary syndrome requiring coronary intervention. Status post PTCA with ADELAIDA x2 to the RCA. Requires ongoing monitoring status post coronary intervention. NEURO - * CAM ICU: NEGATIVE CARDIAC/VASCULAR - * ACS s/p PTCA w/ ADELAIDA x2 to the RCA: * Started on heparin in the ED. 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 * Continue w/ DAPT per cadiology recommendation. * Remains hypertensive. Will add additional dose of BARB. Hold on night time BB dose 2/2 bradycardia. Hydralazine PRN. * ASCVD Rx per cards. * AM Echo. * Trend trop to peak. * EKG: Sinus Bradycardia @ [address]/T-wave changes. QTc 424 ms. * Monitor on telemetry. RESPIRATORY - * Encouraged smoking cessation. GI/NUTRITION - * AHA Diet. RENAL/LYTES - * No significant electrolyte derangements. - * No concerns at this time. ENDO - * No h/o DM or hypothyroidism * BSGs per unit protocol. ISS --> gtt per unit policy. HEME - * Anticoagulated on Eliquis for DVT. ID - * No concern for infectious processes at this point. LINES/IV ACCESS - * PIVs x2 DVT PROPHYLAXIS - * Continue home Eliquis * SCDs I have personally spent 32 minutes of critical care time in the direct management of this patient. This is a life/limb threatening event. This includes time spent evaluating patient, direct bedside care, chart review, placing orders, interpretation of diagnostic studies, discussion with consultants, patient, and family members, as well as other required patient management activities. This time is exclusive of all separately billable procedures, and teaching time and separate from and in addition to any other critical care service time. Thank you for allowing us to participate in the care of this patient. Please refer to my attending physician's documentation for any further recommendations. (2) Acute coronary syndrome: (3) S/P drug eluting coronary stent placement: (4) Elevated troponin: (5) Chest pain: (6) HTN (hypertension): (7) HLD (hyperlipidemia): (8) CAD (coronary artery disease): Supervising Physician Co-Signing Physician Notes Seen and examined. Agree with assessment plan as noted. Please refer to my progress note from 05/29/2022 for additional details History of Present Illness Attending Physician: Giovanny Tripp DO History of Present Illness Patient is a 67-year-old male with a significant past medical history of coronary artery disease status post PTCA with stenting x2 approximately 15 to 20 years ago, hypertension, hyperlipidemia, DVT anticoagulated on Eliquis, and neuropathy. Patient presented to the emergency department with substernal chest pain with radiation across his chest which developed at approximately 10:00 this morning. He had associated diaphoresis and shortness of breath. Patient received nitroglycerin in route without relief of symptoms. He did experience some some relief of symptoms upon arrival to emergency department with addition of morphine and additional nitroglycerin. Patient without EKG changes consistent with STEMI. He was started on a nitro drip as well as heparin drip. Unfortunately, his chest pain persisted and it was felt best the patient be cath emergently given his ongoing symptoms. Patient was found to have an acute 100% in-stent restenosis of the RCA. He was treated with ADELAIDA x2. Patient admitted to the ICU for ongoing management status post intervention. Upon evaluation in the ICU, the patient is awake, alert, and oriented. He reports some mild nausea and very slight burning sensation in his chest which she states is significantly better than his initial presentation. He complains of headache which she states has been ongoing since initiation of the nitroglycerin drip. Otherwise, he denies complaints of vision changes, slurred speech, facial droop, palpitations, pleuritic pain, shortness of breath, abdominal pain, vomiting, or numbness/weakness to the extremities. Allergies Allergy/AdvReac Type Severity Reaction Status Date / Time No Known Allergies Allergy Unverified 05/28/22 13:51 Home Medications Medication Instructions Recorded Confirmed Type apixaban 2.5 mg tablet (Eliquis) 2.5 mg PO BID 05/28/22 05/28/22 History aspirin 81 mg tablet,delayed 324 mg PO .TODAY 05/28/22 05/28/22 History release divalproex 500 mg tablet,delayed 500 mg PO Q12 05/28/22 05/28/22 History release ferrous sulfate 325 mg (65 mg 325 mg PO DAILY 05/28/22 05/28/22 History iron) tablet (FeroSul) ketorolac 10 mg tablet 10 mg PO Q6H PRN Pain 05/28/22 05/28/22 History metoprolol succinate 25 mg 25 mg PO DAILY 05/28/22 05/28/22 History tablet,extended release 24 hr oxycodone 5 mg tablet 5 mg PO Q8H PRN Pain 05/28/22 05/28/22 History pramipexole 1.5 mg tablet (Mirapex) 1.5 mg PO TID 05/28/22 05/28/22 History Patient History Medical History CAD (coronary artery disease) Chronic low back pain DVT (deep venous thrombosis) HLD (hyperlipidemia) HTN (hypertension) Neuropathy Restless leg syndrome Surgical History H/O heart artery stent H/O total knee replacement Previous back surgery Family History Other Coronary heart disease Social History Smoking Status: Smoker, status unknown Tobacco Type: Cigarettes and Cigars packs per day: 0.5; Years Smoked: 20; Cigarettes Per Day: 10; Second Hand Exposure: Yes; Hx Alcohol Use: No Hx Substance Use: No Preferred Language: Moroccan Communication Ability: Effective Health Information Technician Required: No Beliefs That Will Affect Care: None Current Living Situation: Significant Other Feels Safe at Home: Yes Review of Systems Review of Systems: A complete 10 point review of systems was reviewed with the patient with pertinent positives and negatives as per history of present illness. All else were negative. Physical Exam Physical Exam: VITAL SIGNS - Vital signs and nursing notes were reviewed. GENERAL - 67-year-old male appearing his stated age who is in no acute distress. Communicates well with provider and answers questions appropriately. HEAD - NC/AT. EYES - PERRL with EOMI bilaterally. Sclera anicteric. EARS - No deformities of external structures noted on gross examination bilaterally. NOSE - Midline and without cyanosis. No epistaxis or purulent drainage noted. Septum midline without deviation or septal hematoma noted. MOUTH/OROPHARYNX - Without perioral cyanosis. Buccal mucosa pink and moist. NECK - Neck with FROM. LUNGS - Chest wall symmetric without accessory muscle use, intercostals retractions, or central cyanosis. Normal vesicular breath sounds CTA B/L. No wheezes, rales, or rhonchi appreciated. CARDIAC - RRR with S1/S2. No murmur, rubs, or gallops appreciated. No repr oducible tenderness to palpation appreciated over the anterior chest wall. ABDOMEN - Abdominal contour flat without pulsations or visible masses. BS normoactive all four quadrants. No tenderness, palpable masses, hepatosplenomegaly, or ascites noted. EXTREMITIES - No clubbing or peripheral cyanosis. No pretibial edema present. +3/5 radial and dorsalis pedis pulses palpated throughout. +5/5 strength noted in UE/LE bilaterally. NEUROLOGIC - Cranial nerves II through XII grossly intact. Sensory intact to light touch throughout. PSYCH - A&Ox3 and cooperates fully with examiner. Pt is very pleasant and interacts well with examiner. Results & Data Results & Data ([facility]) Vital Signs (Past 12 Hours) Vital Signs Temp Pulse Pulse Resp BP BP Pulse Ox 05/28/22 18:00 62 18 133/78 98 05/28/22 17:00 36.8 C 64 18 162/88 H 98 05/28/22 15:44 52 L 18 96 05/28/22 15:44 46 L 18 170/104 H 96 05/28/22 15:35 48 L 16 170/104 H 95 05/28/22 11:42 62 16 95 05/28/22 11:42 49 L 16 164/89 H 95 05/28/22 11:42 95 05/28/22 11:33 37 C 53 L 16 162/86 H 95 O2 Del Method O2 Flow Rate 05/28/22 18:00 Room Air 05/28/22 17:00 Room Air 05/28/22 15:44 Room Air 05/28/22 15:44 05/28/22 15:35 Room Air 05/28/22 11:42 Room Air 05/28/22 11:42 Room Air 05/28/22 11:42 Room Air 0 05/28/22 11:33 Room Air Coding Level of Care Code Critical Care 1st 30-74 mins Diagnoses Admitted to intensive care unit Z78.9 Acute coronary syndrome I24.9 S/P drug eluting coronary stent placement Z95.5 Elevated troponin R77.8 Chest pain R07.9 Chest pain type: unspecified HTN (hypertension) I10 HLD (hyperlipidemia) E78.5 CAD (coronary artery disease) I25.10 Time Spent (min) 32 (1) Chest pain Chest pain type: unspecified Qualified Code(s): R07.9 - Chest pain, unspecified
[2022-05-29 04:02] LABS: Basophils # (auto) 0.03 K/uL (0-0.2); Basophils % (auto) 0.4 %; Eosinophils # (auto) 0.08 K/uL (0-0.50); Eosinophils % (auto) 1.1 %; Hematocrit (blood only) 38.4 % (40.1-51.0); Hemoglobin 12.6 g/dl (14.0-18.0); Immature Granulocytes # (auto) 0.02 K/uL (0.00-0.02); Immature Granulocytes % (auto) 0.3 %; Lymphocytes # (auto) 1.44 K/uL (1.2-3.4); Lymphocytes % (auto) 19.5 %; Mean Corpuscular Hgb Conc 32.8 g/dL (32.0-36.0); Mean Corpuscular Volume 94.3 fL (80.0-100.0); Mean Platelet Volume 9.6 fL (9.4-12.4); Monocytes # (auto) 0.42 K/uL (0.24-0.82); Monocytes % (auto) 5.7 %; Neutrophils # (auto) 5.39 K/uL (1.4-6.5); Platelet Count 202 K/uL (130-400); RDW Coefficient of Variation 13.5 % (11.5-14.5); RDW Standard Deviation 47.2 fL (36.4-46.3); Red Blood Count 4.07 M/uL (4.63-6.08); White Blood Count 7.38 K/ul (4.8-10.8)
[2022-05-29 05:33] LABS: BUN Creatinine Ratio 11.8 (10-20); Chol HDL Ratio 5.1 (0-5); Creatinine Clr Calc Pharmacy 80.9 ml/min; Est GFR (Non-African American) 95.7 ml/min; Magnesium 1.9 mg/dl (1.7-2.4); Phosphorus 3.1 mg/dl (2.5-4.9); Potassium 4.3 mmol/L (3.5-5.1)
--- NOTE | 2022-05-29 06:24 | Electrocardiogram Report ---
Test Reason : Blood Pressure : / mmHG Vent. Rate : 053 BPM Atrial Rate : 053 BPM P-R Int : 156 ms QRS Dur : 108 ms QT Int : 442 ms P-R-T Axes : 065 056 071 degrees QTc Int : 414 ms Sinus bradycardia Minor ST elevation, consider inferior injury Abnormal ECG No previous ECGs available Confirmed by Rajiv López ([id number]) on 05/29/2022 6:23:58 AM Referred By: Confirmed By:Rajiv López
--- NOTE | 2022-05-29 06:26 | Electrocardiogram Report ---
Test Reason : Blood Pressure : / mmHG Vent. Rate : 052 BPM Atrial Rate : 052 BPM P-R Int : 160 ms QRS Dur : 110 ms QT Int : 454 ms P-R-T Axes : 069 052 061 degrees QTc Int : 422 ms Sinus bradycardia Incomplete right bundle branch block ST elevation, consider inferior injury/STEMI Abnormal ECG When compared with ECG of 28-MAY-2022 11:28, No significant change was found Confirmed by Rajiv López ([id number]) on 05/29/2022 6:25:48 AM Referred By: REFERRED SELF Confirmed By:Rajiv López
--- NOTE | 2022-05-29 06:46 | Electrocardiogram Report ---
Test Reason : Blood Pressure : / mmHG Vent. Rate : 053 BPM Atrial Rate : 053 BPM P-R Int : 138 ms QRS Dur : 112 ms QT Int : 448 ms P-R-T Axes : 021 023 026 degrees QTc Int : 420 ms Sinus bradycardia Incomplete right bundle branch block Cannot rule out Anterior infarct , age undetermined Abnormal ECG When compared with ECG of 28-MAY-2022 11:42, ST elevation no longer elevated in inferior leads Confirmed by Rajiv López ([id number]) on 05/29/2022 6:46:13 AM Referred By: REFERRED SELF Confirmed By:Rajiv López
[2022-05-29] MEDS: PRAMIPEXOLE DIHYDROCHLO 0.5 MG TAB PO SCH ×3 (08:14→20:26)
[2022-05-29] MEDS: ASPIRIN 81 MG ECTAB PO SCH (08:14)
[2022-05-29] MEDS: PANTOprazole 40 MG TAB PO SCH (08:14)
[2022-05-29] MEDS: METOPROLOL TARTRATE 25 MG TAB PO SCH ×2 (08:14→20:27)
[2022-05-29] MEDS: DIVALPROEX DELAY RELEASE 500 MG TAB PO SCH ×2 (08:15→20:25)
--- NOTE | 2022-05-29 08:29 | Critical Care Progress Note ---
Date of Service May 29, 2022 Assessment & Plan (1) Admitted to intensive care unit: (2) S/P drug eluting coronary stent placement: (3) Acute coronary syndrome: (4) Tobacco abuse: Plan Impression: 67-year-old male with acute coronary syndrome status postcardiac catheterization with stent placement. He is asymptomatic this morning and doing well clinically. Recommendations: 1. Acute coronary syndrome: Status post stent. Chest pain-free. Trending troponins until peak. Follow-up echocardiogram this morning pending. Patient is on aspirin Plavix. Okay to advance diet. 2. Hypertension: Currently on 25 mg of metoprolol. He has been mildly bradycardic with heart rates in the high 40s to low 50s so have avoided increasing the dose. Received 5 mg of lisinopril this morning. Will increase to 20 mg daily and potentially titrate up to 40 mg daily depending on clinical response. 3. Hyperlipidemia: On Crestor. 4. Patient will likely require cardiac rehab. He is transitioning from [place] to [place]. Unclear if logistically this can be completed here. He anticipates transitioning care here. 5. Smoking cessation recommended. 6. Chronic DVT: Patient has been maintained on Eliquis in the past. Recommend restarting as soon as it is felt to be prudent per cardiology. Prior notes may be helpful or potentially hematology consultation in the outpatient setting. Disposition per cardiology and primary admitting service. His critical care needs have resolved. Critical care will sign off. Feel free to contact us if we can be of additional assistance. Admission and Anticipated Discharge Date Admission Date: May 28, 2022 Subjective Patient seen and examined. EMR reviewed. Discussed with critical care EDUARDA overnight. The patient is doing well this morning. He denies any chest pain palpitations or shortness of breath. No pain at his wrist. He is not had any syncope or presyncope. No nausea or vomiting. He is hungry and has an appetite. He is working on getting out of bed to the chair. Review of Systems Review of Systems: All systems reviewed & are unremarkable except as noted in Subjective Physical Exam Constitutional: WD/WN, vitals as above Neck: trachea midline, no thyromegaly Respiratory: normal respiratory effort, lungs clear to auscultation Cardiovascular: RRR, no murmur, no edema Gastrointestinal (Abdomen): normal bowel sounds, soft, nontender, no hepatosplenomegaly Musculoskeletal: Extremities: extremities normal to inspection Skin: no rashes, warm and dry Neurologic: Nonfocal exam Lymphatic: no cervical lymphadenopathy Results & Data Results & Data ([facility]) Vital Signs (Past 12 Hours) Vital Signs Temp Pulse Resp BP Pulse Ox O2 Del Method 05/29/22 06:01 168/85 H 05/29/22 06:01 60 18 98 05/29/22 03:00 36.9 C 05/29/22 05:00 52 L 16 99 05/29/22 05:00 173/78 H 05/29/22 04:00 49 L 20 99 05/29/22 04:00 162/76 H 05/29/22 03:30 50 L 19 97 05/29/22 03:01 66 17 99 05/29/22 03:01 151/79 H 05/29/22 03:00 61 15 99 05/29/22 02:30 56 L 17 98 05/29/22 02:45 Room Air 05/29/22 02:00 62 19 98 05/29/22 02:00 185/78 H 05/29/22 01:30 70 17 99 05/29/22 01:45 Room Air 05/29/22 01:00 45 L 18 98 05/29/22 01:00 155/85 H 05/29/22 00:30 51 L 19 99 05/29/22 00:30 167/90 H 05/29/22 00:00 51 L 16 97 05/29/22 00:00 148/87 H 05/28/22 23:30 146/74 H 05/29/22 00:45 Room Air 05/28/22 23:45 Room Air 05/28/22 23:30 53 L 16 95 05/28/22 23:00 56 L 17 98 05/28/22 23:00 151/76 H 05/28/22 22:30 55 L 18 97 05/28/22 22:30 169/86 H 05/28/22 22:45 Room Air 05/28/22 22:15 51 L 15 97 05/28/22 22:15 170/84 H 05/28/22 22:01 171/80 H 05/28/22 22:01 50 L 17 97 05/28/22 22:00 52 L 19 97 05/28/22 21:45 59 L 16 96 05/28/22 21:45 156/94 H 05/28/22 21:31 160/81 H 05/28/22 21:31 60 16 97 05/28/22 21:30 52 L 17 97 05/28/22 21:15 51 L 17 97 05/28/22 21:15 184/81 H 05/28/22 21:07 48 L 17 97 05/28/22 22:17 Room Air 05/28/22 22:15 Room Air 05/28/22 22:03 36.7 C Laboratory Results 05/29/22 03:31 05/29/22 03:31 Troponin up to 17,000 this morning Diagnostic Findings No new imaging Coding Level of Care Code 78481 Subseq Hosp Care Lvl 3 Diagnoses Admitted to intensive care unit Z78.9 S/P drug eluting coronary stent placement Z95.5 Acute coronary syndrome I24.9 Tobacco abuse Z72.0
[2022-05-29] MEDS ORDERED: lisinopril 20 MG TAB PO SCH (08:30)
[2022-05-29] MEDS ORDERED: lisinopril 10 MG TAB PO SCH (09:00)
[2022-05-29] MEDS ORDERED: CLOPIDOGREL BISULFATE 300 MG TAB PO ONE ×2 (09:00)
[2022-05-29] MEDS ORDERED: TICAGRELOR 90 MG TAB PO SCH (09:00)
--- NOTE | 2022-05-29 10:48 | Cardiology Progress Note ---
Date of Service May 29, 2022 Assessment & Plan (1) Acute inferior myocardial infarction: (2) Non-ST elevation (NSTEMI) myocardial infarction: (3) S/P coronary artery stent placement: (4) CAD (coronary artery disease): (5) HTN (hypertension): (6) HLD (hyperlipidemia): (7) Tobacco abuse: Plan ASSESSMENT/PLAN: 1. NSTEMI: No further angina following RCA PCI x2. Peak troponin was [address]. Continue aspirin 81 mg daily and Plavix 75 mg daily for 2 weeks and then can discontinue aspirin while on Eliquis as per Interventional Cardiology. Plavix has replaced Brilinta given that he is also on anticoagulation therapy. Continue beta-drew, high-intensity statin therapy, BARB-inhibitor. P.r.n. nitroglycerin on discharge. Recommend cardiac rehab and he is agreeable. 2. CAD s/p RCA PCI: Presented with mid RCA in stent thrombosis, but had not been taking anti-platelet therapy for years. Continue anti-platelet therapy as outlined above. If anticoagulation therapy is discontinued in the future, would recommend long-term dual anti-platelet therapy, but otherwise triple therapy for 2 weeks and then Plavix with Eliquis. Continue beta-drew, high-intensity statin therapy, BARB-inhibitor. 3. Hypertension: Blood pressure remains elevated. BARB-inhibitor was initiated this hospital stay and has since been titrated by other providers. Optimize blood pressure control. 4. Dyslipidemia: High-intensity statin therapy initiated this hospital stay. Goal LDL < 70. 5. Tobacco abuse: Smoking cessation. 6. Disposition: Cardiology will continue to follow along. Patient care communicated with hospitalist service, Dr. Mccrary. Likely discharge home tomorrow if no complications. Follow-up in the cardiology office next week, which is being arranged. Admission and Anticipated Discharge Date Admission Date: May 29, 2022 Subjective Patient feels much better today. He went to the cardiac catheterization lab last evening and underwent PCI of RCA. He has not had any further chest discomfort. He denies shortness of breath, syncope, near-syncope, palpitations, edema, or bleeding. He was alone in his hospital room. Physical Exam Physical Exam: Gen.: No acute distress. Alert and oriented. HEENT: Anicteric sclera. Neck: No JVD. Cardiac: No ventricular heave. Regular. Normal S1-S2. No murmurs, rubs, or gallops. Pulmonary: Clear to auscultation bilaterally without wheezes, rales, or rhonchi. Abdomen: Soft, nontender, nondistended, with normoactive bowel sounds. No bruits noted. Extremities: 2+ radial pulses bilaterally. Right radial cath site was clean, dry, and intact without erythema or discharge. 2+ posterior tibialis pulses bilaterally. No edema or cyanosis. Psychiatric: Affect appears appropriate. Results & Data ([facility]) Vital Signs (Past 12 Hours) Vital Signs Temp Pulse Resp BP Pulse Ox O2 Del Method 05/29/22 09:28 151/89 H 05/29/22 09:01 60 21 123/103 H 99 05/29/22 08:00 50 L 18 163/87 H 99 05/29/22 07:00 57 L 21 167/90 H 98 Room Air 05/29/22 08:00 65 05/29/22 06:01 168/85 H 05/29/22 06:01 60 18 98 05/29/22 03:00 36.9 C 05/29/22 05:00 52 L 16 99 05/29/22 05:00 173/78 H 05/29/22 04:00 49 L 20 99 05/29/22 04:00 162/76 H 05/29/22 03:30 50 L 19 97 05/29/22 03:01 66 17 99 05/29/22 03:01 151/79 H 05/29/22 03:00 61 15 99 05/29/22 02:30 56 L 17 98 05/29/22 02:45 Room Air 05/29/22 02:00 62 19 98 05/29/22 02:00 185/78 H 05/29/22 01:30 70 17 99 05/29/22 01:45 Room Air 05/29/22 01:00 45 L 18 98 05/29/22 01:00 155/85 H 05/29/22 00:30 51 L 19 99 05/29/22 00:30 167/90 H 05/29/22 00:00 51 L 16 97 05/29/22 00:00 148/87 H 05/28/22 23:30 146/74 H 05/29/22 00:45 Room Air 05/28/22 23:45 Room Air 05/28/22 23:30 53 L 16 95 05/28/22 23:00 56 L 17 98 05/28/22 23:00 151/76 H 05/28/22 22:45 Room Air Laboratory Results Laboratory Results - last 24 hr 05/28/22 05/28/22 05/28/22 11:30 11:30 11:30 WBC 8.04 RBC 3.91 L Hgb 11.9 L Hct 36.2 L MCV 92.6 MCH 30.4 MCHC 32.9 RDW Std Deviation 45.7 RDW Coeff of Belen 13.3 Plt Count 200 MPV 9.4 Immature Gran % (Auto) 0.4 Neut % (Auto) 77.9 Lymph % (Auto) 14.8 [place] % (Auto) 5.8 Eos % (Auto) 0.6 Baso % (Auto) 0.5 Neut # (Auto) 6.26 Lymph # (Auto) 1.19 L [place] # (Auto) 0.47 Eos # (Auto) 0.05 Baso # (Auto) 0.04 Immature Gran # (Auto) 0.03 H PT 11.1 INR 1.0 APTT 26.2 PTT Ratio 1.0 Sodium 138 Potassium 3.7 Chloride 110 H Carbon Dioxide 21 Anion Gap 7 BUN 11 Creatinine 0.75 Est Cr Clr Drug Dosing 81.9 Est GFR ( Amer) 111.6 Est GFR (Non-Af Amer) 96.3 BUN/Creatinine Ratio 14.7 Glucose 87 Calcium 8.0 L Phosphorus Magnesium Troponin I High Sens 20.3 H Triglycerides Cholesterol LDL Cholesterol, Calc VLDL Cholesterol, Calc HDL Cholesterol Cholesterol/HDL Ratio Lipase 11 Nasal Screen MRSA (PCR) SARS-CoV-2, RNA, NAAT 05/28/22 05/28/22 05/28/22 11:43 14:00 18:53 WBC RBC Hgb Hct MCV MCH MCHC RDW Std Deviation RDW Coeff of Belen Plt Count MPV Immature Gran % (Auto) Neut % (Auto) Lymph % (Auto) [place] % (Auto) Eos % (Auto) Baso % (Auto) Neut # (Auto) Lymph # (Auto) [place] # (Auto) Eos # (Auto) Baso # (Auto) Immature Gran # (Auto) PT INR APTT PTT Ratio Sodium Potassium Chloride Carbon Dioxide Anion Gap BUN Creatinine Est Cr Clr Drug Dosing Est GFR ( Amer) Est GFR (Non-Af Amer) BUN/Creatinine Ratio Glucose Calcium Phosphorus Magnesium Troponin I High Sens 259.4 H* D 2807.4 H* D Triglycerides Cholesterol LDL Cholesterol, Calc VLDL Cholesterol, Calc HDL Cholesterol Cholesterol/HDL Ratio Lipase Nasal Screen MRSA (PCR) SARS-CoV-2, RNA, NAAT NEGATIVE 05/28/22 05/29/22 05/29/22 21:15 03:31 03:31 WBC 7.38 RBC 4.07 L Hgb 12.6 L Hct 38.4 L MCV 94.3 MCH 31.0 MCHC 32.8 RDW Std Deviation 47.2 H RDW Coeff of Belen 13.5 Plt Count 202 MPV 9.6 Immature Gran % (Auto) 0.3 Neut % (Auto) 73.0 Lymph % (Auto) 19.5 [place] % (Auto) 5.7 Eos % (Auto) 1.1 Baso % (Auto) 0.4 Neut # (Auto) 5.39 Lymph # (Auto) 1.44 R[place]y # (Auto) 0.42 Eos # (Auto) 0.08 Baso # (Auto) 0.03 Immature Gran # (Auto) 0.02 PT INR APTT PTT Ratio Sodium Potassium Chloride Carbon Dioxide Anion Gap BUN Creatinine Est Cr Clr Drug Dosing Est GFR ( Amer) Est GFR (Non-Af Amer) BUN/Creatinine Ratio Glucose Calcium Phosphorus Magnesium Troponin I High Sens 93198.4 H* D Triglycerides Cholesterol LDL Cholesterol, Calc VLDL Cholesterol, Calc HDL Cholesterol Cholesterol/HDL Ratio Lipase Nasal Screen MRSA (PCR) Negative SARS-CoV-2, RNA, NAAT 05/29/22 05/29/22 03:31 08:53 WBC RBC Hgb Hct MCV MCH MCHC RDW Std Deviation RDW Coeff of Belen Plt Count MPV Immature Gran % (Auto) Neut % (Auto) Lymph % (Auto) R[place]y % (Auto) Eos % (Auto) Baso % (Auto) Neut # (Auto) Lymph # (Auto) [place] # (Auto) Eos # (Auto) Baso # (Auto) Immature Gran # (Auto) PT INR APTT PTT Ratio Sodium 137 Potassium 4.3 Chloride 105 Carbon Dioxide 24 Anion Gap 8 BUN 9 Creatinine 0.76 Est Cr Clr Drug Dosing 80.9 Est GFR ( Amer) 111.0 Est GFR (Non-Af Amer) 95.7 BUN/Creatinine Ratio 11.8 Glucose 99 Calcium 9.0 Phosphorus 3.1 Magnesium 1.9 Troponin I High Sens 56957.4 H* Triglycerides 179 H Cholesterol 147 LDL Cholesterol, Calc 82 VLDL Cholesterol, Calc 36 H HDL Cholesterol 29 Cholesterol/HDL Ratio 5.1 H Lipase Nasal Screen MRSA (PCR) SARS-CoV-2, RNA, NAAT Diagnostic Findings Telemetry personally reviewed: No ventricular arrhythmia. Sinus rhythm. Cardiac catheterization reviewed from 05/28/2022: Coronary angiography: LM -short, almost separate ostium, no significant disease LAD -medium caliber, 30 to 40% mid segment disease, distal vessel without significant disease wraparound apex. D2 with 60% ostial stenosis Circumflex -large caliber, no significant disease, large left PLB without disease. RCA -dominant, proximal to mid stents with 90% in-stent restenosis followed by a 100% acute occlusion at distal aspect of prior stents. PCI: Successful PCI of mid to distal RCA with 2 new overlapping ADELAIDA (3.0 x 15, 3.0 x 38 [place]; postdilated with 3.5 NC). Current stents overlap prior stents and extend more distally. Echo 05/28/2022: EF 55-60%. Severe hypokinesis of the base to mid inferoseptum and base to mid inferior wall segments. No significant valvular abnormalities. Normal RVSP. ECG personally reviewed 05/28/2022 at 9:23 p.m.: Sinus bradycardia 50 beats per minute. Possible Inferior infarct. Medications Administered Current Inpatient Medications Acetaminophen (Acetaminophen 500 Mg Tab) 1,000 mg PO Q6H PRN PRN Reason: Pain or Fever Stop: 06/27/22 21:36 Last Admin: 05/29/22 08:12 Dose: 1,000 mg Aspirin (Aspirin 81 Mg Ectab) [facility] Stop: 06/28/22 08:59 Last Admin: 05/29/22 08:14 Dose: 81 mg Clopidogrel Bisulfate (Clopidogrel Bisulfate 75 Mg Tab) 75 mg PO [facility] Stop: 06/29/22 08:59 Divalproex Sodium (Divalproex Delay Release 500 Mg Tab) 500 mg PO Q12 [facility] Stop: 06/27/22 20:59 Last Admin: 05/29/22 08:15 Dose: 500 mg Lisinopril (Lisinopril 20 Mg Tab) [facility] Stop: 06/28/22 08:29 Last Admin: 05/29/22 09:29 Dose: 20 mg Metoprolol Tartrate (Metoprolol Tartrate 25 Mg Tab) 25 mg PO BID [facility] Stop: 06/27/22 20:59 Last Admin: 05/29/22 08:14 Dose: 25 mg Nitroglycerin (Nitroglycerin Sl 0.4 Mg/Tab Tab) 0.4 mg SL UD PRN PRN Reason: Chest Pain Stop: 06/27/22 14:01 Ondansetron HCl (Ondansetron Inj 2 Mg/Ml 2 Ml Vial) 4 mg IV Q6H PRN PRN Reason: Nausea And Vomiting Stop: 06/27/22 20:45 Oxycodone HCl (Oxycodone Hcl Ir 5 Mg Tab (Immediate Release)) 5 mg PO Q8H PRN PRN Reason: Pain Stop: 06/11/22 14:27 Pantoprazole Sodium (Pantoprazole 40 Mg Tab) 40 mg PO QAM [facility] Stop: 06/27/22 14:29 Last Admin: 05/29/22 08:14 Dose: 40 mg Pramipexole Dihydrochloride (Pramipexole Dihydrochlo 0.5 Mg Tab) 1.5 mg PO TID [facility] Stop: 06/27/22 20:59 Last Admin: 05/29/22 08:14 Dose: 1.5 mg Rosuvastatin Calcium (Rosuvastatin Calcium 20 Mg Tab) 40 mg PO HS [facility] Stop: 06/27/22 20:59 Last Admin: 05/28/22 21:45 Dose: 40 mg PG Care Time/CCT Total # of Minutes Spent Total Time Spent with Patient: Total time spent is greater than 50% in coordination of care (as documented) at patient's floor/unit and/or counseling patient: Coding Level of Care Code 92166 Subseq Hosp Care Lvl 3 Diagnoses Acute inferior myocardial infarction I21.19 Non-ST elevation (NSTEMI) myocardial infarction I21.4 S/P coronary artery stent placement Z95.5 CAD (coronary artery disease) I25.10 HTN (hypertension) I10 HLD (hyperlipidemia) E78.5 Tobacco abuse Z72.0
[2022-05-29] MEDS: APIXABAN 2.5 MG TAB PO SCH ×2 (12:23→20:27)
[2022-05-29] MEDS ORDERED: NICOTINE 7 MG/24 HR TDSY TD SCH (12:30)
--- NOTE | 2022-05-29 12:30 | Hospitalist Progress Note ---
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 and had restenosis of RCA with 2 [place] [address] ECHO with preserved EF, with severe hypokinesis of base to mid inferoseptum and inferolat wall -continue ASA, Plavix, and Eliquis for short term triple therapy x 2 weeks, then drop ASA and continue Plavix and Eliquis only -lipids ok,start Crestor -started metoprolol, having sinus carlos in 40s so may need to reduce dose -started lisinopril -check HgbA1C in AM -counseled on smoking cessation -appreciate Cardiology management -continue to monitor overnight on tele-no arrhythmias noted thus far (2) Tobacco abuse: Plan: counseled on cessation start nicotine patch (3) Restless leg syndrome: Plan: c/o severe RLS has good circulation o legs hgb normal but will check Fe studies continue Mirapex for now but he is requesting Neuro referral as outpt sounds like was previously on gabapentin? (4) CAD (coronary artery disease): Plan: CAD- cath report obtained from [facility] attached to hard chart- 11/04/2016 - Stent noted to RCA - is on Eliquis with no other antiplatelet medication prior to admission - continue BP control - 70% D1 60% LAD with otherwise interpreted as minor luminal irregularities. (5) HLD (hyperlipidemia): Plan: Not on a statin - believes he was on atrovastatin at one time and now is on fishoil as above (6) HTN (hypertension): Plan: BPs controlled meds as above (7) Chronic low back pain: Plan: S/P spinal surgery in March- remains on activity restrictions - Continue Percocet - Continue Cyclobenzaprine PRN (8) Neuropathy: Plan: neuropathy to feet and lower legs with RLS at night - states he does not take gabapentin any longer (9) DVT (deep venous thrombosis): Plan: Chronic re-occurrence patient reports 8-9 DVT of right lower leg as well as following his TKR ok to restart Eliquis prophylactic dose 2.5mg po bid Plan Patient is moving to the area he has not set up with a PCP or Pattern Clerk office yet. Will place consult to Case Management to assist with PCP Dispo-continued stay but can likely dc tomorrow. Can downgrade out of ICU Admission and Anticipated Discharge Date Admission Date: May 29, 2022 Subjective Pt feeling well, no concerns except has questions about his RLS. Denies CP, SOB, abd pains. No nocturnal leg cramps. Still smoking 5-8 cigg/day and requesting nicotine patch, wants to quit smoking Tele with sinus bradycardia, rates 40s Review of Systems Review of Systems: All systems reviewed & are unremarkable except as noted in HPI & below Physical Exam Constitutional: WD/WN, vitals as above ENMT: external ear and nose normal, oropharynx normal Neck: trachea midline, no thyromegaly Respiratory: normal respiratory effort, lungs clear to auscultation Cardiovascular: Rate/Rhythm: regular rhythm and + bradycardic Heart Sounds: no murmur Vessels: dorsalis pedis pulses present Extremities: no edema Chest (Breasts): Chest: normal inspection of chest Gastrointestinal (Abdomen): normal bowel sounds, soft, nontender, no hepatosplenomegaly Musculoskeletal: Extremities: extremities normal to inspection; no cyanosis and no clubbing Skin: no rashes, warm and dry Neurologic: moves all extremities and awake; no focal motor deficits Psychiatric: A+Ox3, euthymic affect Lymphatic: no lymphedema Results & Data Results & Data ([facility]) Vital Signs (Past 12 Hours) Vital Signs Temp Pulse Resp BP Pulse Ox O2 Del Method 05/29/22 09:28 151/89 H 05/29/22 09:01 60 21 123/103 H 99 05/29/22 08:00 50 L 18 163/87 H 99 05/29/22 07:00 57 L 21 167/90 H 98 Room Air 05/29/22 08:00 65 05/29/22 06:01 168/85 H 05/29/22 06:01 60 18 98 05/29/22 03:00 36.9 C 05/29/22 05:00 52 L 16 99 05/29/22 05:00 173/78 H 05/29/22 04:00 49 L 20 99 05/29/22 04:00 162/76 H 05/29/22 03:30 50 L 19 97 05/29/22 03:01 66 17 99 05/29/22 03:01 151/79 H 05/29/22 03:00 61 15 99 05/29/22 02:30 56 L 17 98 05/29/22 02:45 Room Air 05/29/22 02:00 62 19 98 05/29/22 02:00 185/78 H 05/29/22 01:30 70 17 99 05/29/22 01:45 Room Air 05/29/22 01:00 45 L 18 98 05/29/22 01:00 155/85 H 05/29/22 00:30 51 L 19 99 05/29/22 00:30 167/90 H 05/29/22 00:45 Room Air Laboratory Results 05/29/22 05/29/22 05/29/22 Range/Units 08:53 03:31 03:31 WBC 7.38 (4.8-10.8) K/ul RBC 4.07 L (4.63-6.08) M/uL Hgb 12.6 L (14.0-18.0) g/dl Hct 38.4 L (40.1-51.0) % MCV 94.3 (80.0-100.0) fL MCH 31.0 (25.0-34.0) pg MCHC 32.8 (32.0-36.0) g/dL RDW Std Deviation 47.2 H (36.4-46.3) fL RDW Coeff of Belen 13.5 (11.5-14.5) % Plt Count 202 (130-400) K/uL MPV 9.6 (9.4-12.4) fL Immature Gran % (Auto) 0.3 % Neut % (Auto) 73.0 % Lymph % (Auto) 19.5 % [place]ole % (Auto) 5.7 % Eos % (Auto) 1.1 % Baso % (Auto) 0.4 % Neut # (Auto) 5.39 (1.4-6.5) K/uL Lymph # (Auto) 1.44 (1.2-3.4) K/uL [place]ole # (Auto) 0.42 (0.24-0.82) K/uL Eos # (Auto) 0.08 (0-0.50) K/uL Baso # (Auto) 0.03 (0-0.2) K/uL Immature Gran # (Auto) 0.02 (0.00-0.02) K/uL PT (9.0-12.0) Seconds INR (0.9-1.1) APTT (21.0-31.0) Seconds PTT Ratio Sodium 137 (136-145) mmol/L Potassium 4.3 (3.5-5.1) mmol/L Chloride 105 (98-107) mmol/L Carbon Dioxide 24 (21-32) mmol/L Anion Gap 8 (3-11) BUN 9 (6-23) mg/dl Creatinine 0.76 (0.6-1.4) mg/dl Est Cr Clr Drug Dosing 80.9 ml/min Est GFR ( Amer) 111.0 ml/min Est GFR (Non-Af Amer) 95.7 ml/min BUN/Creatinine Ratio 11.8 (10-20) Glucose 99 (70-99(Fasting)) mg/dl Calcium 9.0 (8.5-10.1) mg/dl Phosphorus 3.1 (2.5-4.9) mg/dl Magnesium 1.9 (1.7-2.4) mg/dl Troponin I High Sens 33353.4 H* (0-20) pg/ml Triglycerides 179 H (0-150) mg/dl Cholesterol 147 (0-200) mg/dl LDL Cholesterol, Calc 82 mg/dl VLDL Cholesterol, Calc 36 H (0-30) mg/dl HDL Cholesterol 29 mg/dl Cholesterol/HDL Ratio 5.1 H (0-5) Nasal Screen MRSA (PCR) (Negative) SARS-CoV-2, RNA, NAAT (NEGATIVE) 05/29/22 05/28/22 05/28/22 Range/Units 03:31 21:15 18:53 WBC (4.8-10.8) K/ul RBC (4.63-6.08) M/uL Hgb (14.0-18.0) g/dl Hct (40.1-51.0) % MCV (80.0-100.0) fL MCH (25.0-34.0) pg MCHC (32.0-36.0) g/dL RDW Std Deviation (36.4-46.3) fL RDW Coeff of Belen (11.5-14.5) % Plt Count (130-400) K/uL MPV (9.4-12.4) fL Immature Gran % (Auto) % Neut % (Auto) % Lymph % (Auto) % [place] % (Auto) % Eos % (Auto) % Baso % (Auto) % Neut # (Auto) (1.4-6.5) K/uL Lymph # (Auto) (1.2-3.4) K/uL [place] # (Auto) (0.24-0.82) K/uL Eos # (Auto) (0-0.50) K/uL Baso # (Auto) (0-0.2) K/uL Immature Gran # (Auto) (0.00-0.02) K/uL PT (9.0-12.0) Seconds INR (0.9-1.1) APTT (21.0-31.0) Seconds PTT Ratio Sodium (136-145) mmol/L Potassium (3.5-5.1) mmol/L Chloride (98-107) mmol/L Carbon Dioxide (21-32) mmol/L Anion Gap (3-11) BUN (6-23) mg/dl Creatinine (0.6-1.4) mg/dl Est Cr Clr Drug Dosing ml/min Est GFR ( Amer) ml/min Est GFR (Non-Af Amer) ml/min BUN/Creatinine Ratio (10-20) Glucose (70-99(Fasting)) mg/dl Calcium (8.5-10.1) mg/dl Phosphorus (2.5-4.9) mg/dl Magnesium (1.7-2.4) mg/dl Troponin I High Sens 35361.4 H* D 2807.4 H* D (0-20) pg/ml Triglycerides (0-150) mg/dl Cholesterol (0-200) mg/dl LDL Cholesterol, Calc mg/dl VLDL Cholesterol, Calc (0-30) mg/dl HDL Cholesterol mg/dl Cholesterol/HDL Ratio (0-5) Nasal Screen MRSA (PCR) Negative (Negative) SARS-CoV-2, RNA, NAAT (NEGATIVE) 05/28/22 05/28/22 05/28/22 Range/Units 14:00 11:43 11:30 WBC (4.8-10.8) K/ul RBC (4.63-6.08) M/uL Hgb (14.0-18.0) g/dl Hct (40.1-51.0) % MCV (80.0-100.0) fL MCH (25.0-34.0) pg MCHC (32.0-36.0) g/dL RDW Std Deviation (36.4-46.3) fL RDW Coeff of Belen (11.5-14.5) % Plt Count (130-400) K/uL MPV (9.4-12.4) fL Immature Gran % (Auto) % Neut % (Auto) % Lymph % (Auto) % [place]ole % (Auto) % Eos % (Auto) % Baso % (Auto) % Neut # (Auto) (1.4-6.5) K/uL Lymph # (Auto) (1.2-3.4) K/uL [place] # (Auto) (0.24-0.82) K/uL Eos # (Auto) (0-0.50) K/uL Baso # (Auto) (0-0.2) K/uL Immature Gran # (Auto) (0.00-0.02) K/uL PT 11.1 (9.0-12.0) Seconds INR 1.0 (0.9-1.1) APTT 26.2 (21.0-31.0) Seconds PTT Ratio 1.0 Sodium (136-145) mmol/L Potassium (3.5-5.1) mmol/L Chloride (98-107) mmol/L Carbon Dioxide (21-32) mmol/L Anion Gap (3-11) BUN (6-23) mg/dl Creatinine (0.6-1.4) mg/dl Est Cr Clr Drug Dosing ml/min Est GFR ( Amer) ml/min Est GFR (Non-Af Amer) ml/min BUN/Creatinine Ratio (10-20) Glucose (70-99(Fasting)) mg/dl Calcium (8.5-10.1) mg/dl Phosphorus (2.5-4.9) mg/dl Magnesium (1.7-2.4) mg/dl Troponin I High Sens 259.4 H* D (0-20) pg/ml Triglycerides (0-150) mg/dl Cholesterol (0-200) mg/dl LDL Cholesterol, Calc mg/dl VLDL Cholesterol, Calc (0-30) mg/dl HDL Cholesterol mg/dl Cholesterol/HDL Ratio (0-5) Nasal Screen MRSA (PCR) (Negative) SARS-CoV-2, RNA, NAAT NEGATIVE (NEGATIVE) PG Care Time/CCT Total # of Minutes Spent Total Time Spent with Patient: Total time spent is greater than 50% in coordination of care (as documented) at patient's floor/unit and/or counseling patient: Coding Level of Care Code 83618 Subseq Hosp Care Lvl 3 Diagnoses Non-ST elevation (NSTEMI) myocardial infarction I21.4 Tobacco abuse Z72.0 Restless leg syndrome G25.81 CAD (coronary artery disease) I25.10 HLD (hyperlipidemia) E78.5 HTN (hypertension) I10 Chronic low back pain M54.50; G89.29 Neuropathy G62.9 DVT (deep venous thrombosis) I82.409
[2022-05-29] MEDS ORDERED: PROCHLORPERAZINE 5 MG in SYRINGE 4 ML IV PRN (18:59)
[2022-05-29] MEDS ORDERED: PROCHLORPERAZINE 5 MG in SYRINGE 4 ML IV ONE (19:00)
--- NOTE | 2022-05-29 19:13 | XRay Report ---
XR chest 1V portable CLINICAL HISTORY: chest pain. COMPARISON STUDY: 05/28/2022 TECHNIQUE: 1 view of the chest FINDINGS: Single frontal view of the chest demonstrates the cardiomediastinal silhouette to be within normal li mits. There is a decreased inspiratory effort with elevation of the hemidiaphragms and crowding of th e bronchovascular markings at the lung bases and centrally. There is evidence for interval mild centr al vascular congestion. The findings are suspicious for early cardiac decompensation. There is no kelly dence for pleural effusion. No alveolar opacities are seen. There is no acute osseous pathology. IMPRESSION: 1. Decreased inspiration with interval development of mild central vascular congestion suspicious for early cardiac decompensation. ACT 112: Negative or not required by law. Electronically signed by: Richar Morelos M.D. 05/29/2022 7:11 PM
[2022-05-29] MEDS: ROSUVASTATIN CALCIUM 20 MG TAB PO SCH (20:26)
[2022-05-30 06:28] LABS: Basophils # (auto) 0.04 K/uL (0-0.2); Basophils % (auto) 0.4 %; Eosinophils # (auto) 0.05 K/uL (0-0.50); Eosinophils % (auto) 0.5 %; Hematocrit (blood only) 40.2 % (40.1-51.0); Hemoglobin 13.7 g/dl (14.0-18.0); Immature Granulocytes # (auto) 0.04 K/uL (0.00-0.02); Immature Granulocytes % (auto) 0.4 %; Lymphocytes # (auto) 1.62 K/uL (1.2-3.4); Lymphocytes % (auto) 16.4 %; Mean Corpuscular Hgb Conc 34.1 g/dL (32.0-36.0); Mean Platelet Volume 9.6 fL (9.4-12.4); Monocytes # (auto) 0.65 K/uL (0.24-0.82); Monocytes % (auto) 6.6 %; Neutrophils % (auto) 75.7 %; Platelet Count 228 K/uL (130-400); RDW Coefficient of Variation 13.2 % (11.5-14.5); RDW Standard Deviation 44.4 fL (36.4-46.3); Red Blood Count 4.42 M/uL (4.63-6.08)
[2022-05-30 07:00] LABS: Iron 48 mcg/dl (35-175); Total Iron Binding Cap Calc 309 mcg/dl (250-450); Transferrin (FE) Percent Satur 16 % (20-50); Unsaturated Iron Binding Cap 261 mcg/dl (155-355)
[2022-05-30 07:13] LABS: Ferritin 225.9 ng/ml (8-388)
[2022-05-30 07:30] LABS: BUN Creatinine Ratio 13.9 (10-20); Creatinine Clr Calc Pharmacy 77.5 ml/min; Est GFR (African American) 109.2 ml/min; Est GFR (Non-African American) 94.2 ml/min; Potassium 4.2 mmol/L (3.5-5.1)
[2022-05-30] MEDS: PRAMIPEXOLE DIHYDROCHLO 0.5 MG TAB PO SCH (08:20)
[2022-05-30] MEDS: APIXABAN 2.5 MG TAB PO SCH (08:20)
[2022-05-30] MEDS: METOPROLOL TARTRATE 25 MG TAB PO SCH (08:21)
[2022-05-30] MEDS: ASPIRIN 81 MG ECTAB PO SCH (08:21)
[2022-05-30] MEDS: DIVALPROEX DELAY RELEASE 500 MG TAB PO SCH (08:21)
[2022-05-30 08:41] LABS: Estimated Average Glucose 100 mg/dl; Hemoglobin A1C 5.1 % (4.5-5.6)
[2022-05-30] MEDS ORDERED: CLOPIDOGREL BISULFATE 75 MG TAB PO SCH (09:00)
[2022-05-30] MEDS ORDERED: FERROUS SULFATE 325 MG TAB PO SCH (09:00)
[2022-05-30] MEDS ORDERED: lisinopril 10 MG TAB PO SCH (10:45)
--- NOTE | 2022-05-30 10:46 | Discharge Summary ---
Date of Service May 30, 2022 Admission HPI Per Admitting Provider 67 YOM with medical history of: CAD, [place] with stent to "right side x2" approx 15 years ago, blood clots to right leg "8 or 9" and is on Eliquis, spinal surgery 04/10, HTN, HLD, current every day smoker. Patient is not from the area so have no records to review at this time. Do not have any other ECG or ECHO available for review. Patient came to the EMD today for complaints of chest pain that started around 930 or 1000 this morning while he was sitting and watching TV. Reports that it originally started as a burning sensation in his throat and then turned into a pressure and pain in the center of his chest radiating out to each side. No radiation to back or into the shoulders or down the arm. Was not associated with n/v, diaphoresis, jaw pain. He rated the pain as a pressure that increased in intensity to 7-8. He called EMS and was given [address] to the EMD and aspirin. He now feels that it just "hurts" and has some reproducible aspect but states this is not what it felt like this morning. He was given Morphine in the EMD which he feels made the pain go away. He had routine labs performed to include HScTNI, ECG, and CXR. His ECG has non specific ST changes. His HScTNI was drawn at 1100 and was 20.3. Hospitalist service was consulted for admission. Will obtain ECHO now, repeat his HScTNI. He follows with [facility] in [place] [phone]. Have reached out to get his records faxed over. Will admit to PCU telemetry for rule out [place] and further risk stratify. Patient will be moving to the area, so likely will need Primary Care and Cardiology physicians upon discharge. COVID test on admission is: NEGATIVE Principal Diagnosis NSTEMI Discharge Exam Constitutional WD/WN, vitals as above Eyes + anicteric sclerae Neck trachea midline, no thyromegaly Respiratory normal respiratory effort, lungs clear to auscultation Cardiovascular Rate/Rhythm: regular rhythm Heart Sounds: no murmur Extremities: no edema Chest (Breasts) Chest: normal inspection of chest Gastrointestinal (Abdomen) normal bowel sounds, soft, nontender, no hepatosplenomegaly Musculoskeletal Extremities: extremities normal to inspection; no cyanosis and no clubbing Skin no rashes, warm and dry Neurologic moves all extremities and awake; no focal motor deficits Psychiatric A+Ox3, euthymic affect Lymphatic no lymphedema Discharge Data Allergies Allergy/AdvReac Type Severity Reaction Status Date / Time No Known Allergies Allergy Unverified 05/28/22 13:51 Consultations 05/28/22 12:55 ED Decision to Admit Stat 05/28/22 15:07 Consult Cardiology Routine 05/28/22 20:51 Consult Cardiac Rehabilitation Routine Consult Cardiac Cath Rn Routine Procedures Performed Operation Date: 05/28/22 19:30 Actual Procedures p Cath, Left with Cors and Vent - Wang Abbott MD p Aspiration/PCI w/ADELAIDA for Stemi - Wang Abbott MD Ordered Studies 05/28/22 19:31 CL Cath Imgs for PACS use only Stat ECHO Hospital Course (1) Non-ST elevation (NSTEMI) myocardial infarction: Patient presents with chest pain that occurred at rest with burning sensation and troponin increased, had some subtle ST elevations in inferior leads Taken as heart alert to 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 worker and had restenosis of RCA with 2 [place] [address] ECHO with preserved EF, with severe hypokinesis of base to mid inferoseptum and inferolat wall -continue ASA, Plavix, and Eliquis for short term triple therapy x 2 weeks, then drop ASA and continue Plavix and Eliquis only -lipids ok,start Crestor high intensity -continue metoprolol 25mg XL daily as before -started lisinopril 10 mg daily - HgbA1C normal here at 5.1% -counseled on smoking cessation-he had a lot of nausea from nicotine patch which was then removed -appreciate Cardiology management-f/u as outpt and will need referral to cardiac rehab -no events on tele-no arrhythmias No pain and doing well, ambulating, stable for dc to home (2) Tobacco abuse: counseled on cessation had nausea with nicotine patch (3) Restless leg syndrome: c/o severe RLS has good circulation o legs hgb normal butl checked Fe studies--> fairly normal -continue po FeSO4 continue Mirapex for now but he is requesting Neuro referral as outpt sounds like was previously on gabapentin? (4) CAD (coronary artery disease): CAD- cath report obtained from [facility] attached to hard chart- 11/04/2016 - Stent noted to RCA - is on Eliquis with no other antiplatelet medication prior to admission - continue BP control - 70% D1 60% LAD with otherwise interpreted as minor luminal irregularities. (5) HLD (hyperlipidemia): Not on a statin - believes he was on atrovastatin at one time and now is on fishoil as above (6) HTN (hypertension): BPs controlled meds as above (7) Chronic low back pain: S/P spinal surgery in March- remains on activity restrictions - Continue Percocet - Continue Cyclobenzaprine PRN (8) Neuropathy: neuropathy to feet and lower legs with RLS at night - states he does not take gabapentin any longer (9) DVT (deep venous thrombosis): Chronic re-occurrence patient reports 8-9 DVT of right lower leg as well as following his TKR ok to continue Eliquis prophylactic dose 2.5mg po bid Plan Patient is moving to the area he has not set up with a PCP or Biometrician office yet. Will place consult to Case Management to assist with PCP -they set him up with a PCP Dispo-dc to home today Total Time Total Time Spent Total Time Spent (In Minutes): 35 min Discharge Plan Discharge Items Patient Disposition: Home - Self-Care Reason For Visit: chest pain Discharge Diagnosis: NSTEMI Condition on Discharge: Good Activity: As commented below Lifting: No more than 5 pounds Bathing: Keep incision dry Sexual Activity: Wait until after follow-up appointment Exercise/Sports: Wait until after follow-up appointment Driving/Machine Use: Resume 3 days after discharge Non-emergency contact: Primary Care Provider and Biometrician Call non-emergency contact if: you have any medication questions and your symptoms worsen Follow-up/Referrals: Fabio Gonzalez MD [Physician] - (Please call to schedule an appointment regarding your restless legs syndrome) Rajiv López MD [Physician] - 06/07/22 8:45 am Tate Loza DO [Primary Care Provider] - 06/05/22 1:30 am (Patient to show up 15 minutes early (1:15pm) to appointment. ) PCP,NO [Physician] - Diet: Heart Healthy Addtl Attending Provider Instructions: Please take all medications as prescribed as we discussed. You will remain on the baby aspirin once daily ONLY for 2 weeks and then STOP that, but CONTINUE always on the other two blood thinners (Plavix and Eliquis). You should NEVER take any NSAIDs such as toradol, ibuprofen, Aleve, naproxen, meloxicam, etc. as these are also blood thinners and can also increase your risk for heart attack. Your toradol was discontinued. Follow up with your new PCP and the Biometrician as scheduled for you. Home Care: * Take your medications exactly as directed. Don't skip doses. * Remember that recovery after a heart attack takes time. Plan to rest for at lease 4-8 weeks while you recover. Then return to normal activity when your doctor says it's okay. * Ask your doctor about joining a heart rehabilitation program. * Tell your doctor if you are feeling depressed. Feelings of sadness are common after a heart attack, but it is important that you speak to someone if you are feeling overwhelmed by these feelings. * If you are having chest pain, call 911 for an ambulance. Do NOT drive yourself to the hospital. * Ask your family members to learn CPR. * Learn to take your own blood pressure and pulse. Keep a record of your results. Ask your doctor when you should seek emergency medical attention. He or she will tell you which blood pressure reading is dangerous. Lifestyle Changes: * Maintain a healthy weight. Get help to lose any extra pounds. * Cut back on salt. * Limit canned, dried, packaged, and fast foods. * Don't add salt to your food. * Season foods with herbs instead of salt when you cook. * Break the smoking habit. Enroll in a stop-smoking program to improve your chances of success. * Limit fatty foods. * Ask your doctor about having your lipid levels checked regularly. * Build up your activity according to your doctor's recommendation. * Ask your doctor when it's okay to resume sexual activity. * Tell your doctor about any erectile dysfunction (ED) medication you are taking. Some ED medications are not safe if you take certain heart medications. * Try to manage stress. Follow Up: It is important for you to keep your follow up appointments with your medical provider. ACTIVITY RECOMMENDATIONS: Excess manipulation of the wrist should be avoided for the next 24-48 hours. * No lifting over 2 pounds (approximately a 1/2 gallon of milk) with the utilized arm for 24 hours. * No strenuous activity such as bowling or tennis for 3 days. * Keep the site of the procedure covered with a bandage for 24 hours. *You may shower the day after the procedure. Do not take a tub bath or submerge the puncture site in water for the next 3 days. *Do not operate any motorized equipment for 3 days. SPECIAL CARE INSTRUCTIONS: The site may be slightly bruised and sore following your procedure. Should any of the following occur, contact the Dr. who performed your procedure. 1. Redness/inflammation, swelling, chills, or fever, or colored drainage at procedure site within 3-7 days after your procedure. 2. Coldness, discoloration, ongoing numbness, severe pain, or swelling. Expect mild tingling of hand and tenderness at the puncture site for up to three days. If this persists beyond three days, or other symptoms develop, notify the Dr. who performed your procedure. BLEEDING: If the procedure site on your wrist begins to bleed, do not panic 1. Place 1 or 2 fingers firmly just slightly above the insertion site to stop the bleeding. You may be able to feel your pulse as you hold pressure. 2. Lift your finger after 5 minutes to see if the bleeding has stopped. 3. Once the bleeding has stopped, gently wipe the wrist area clean with a bandage. * If the bleeding from your wrist does not stop after 10 minutes, or if there is a large amount of bleeding or spurting, call 911 (do not drive yourself to the hospital). SKIN IRRITATION: * You may experience some redness and/or swelling in the area where radiation was administered. If any skin irritation occurs, please contact your family physician. FOLLOW UP VISIT: Keep any scheduled doctor appointments. Pending Studies at Discharge: No Stand-Alone Forms: [employer], Smoking Cessation Medications and DC Order Prescriptions: New clopidogrel 75 mg Tablet 75 mg PO QAM Qty: 30 0RF lisinopril 10 mg Tablet 10 mg PO QAM Qty: 30 0RF rosuvastatin 40 mg tablet 40 mg PO DAILY Qty: 30 0RF nitroglycerin [Nitrostat] 0.4 mg Tablet, Sublingual 0.4 mg sublingual UD PRN (Reason: chest pain) Qty: 15 0RF Continued divalproex 500 mg Tablet,Delayed Release (Dr/Ec) 500 mg PO Q12 ferrous sulfate [FeroSul] 325 mg (65 mg iron) Tablet 325 mg PO DAILY metoprolol succinate 25 mg Tablet Extended Release 24 Hr 25 mg PO DAILY pramipexole [Mirapex] 1.5 mg Tablet 1.5 mg PO TID oxycodone 5 mg Tablet 5 mg PO Q8H PRN (Reason: Pain) Rx Instructions: INSTANT RELEASE TABS Eliquis 2.5 mg Tablet 2.5 mg PO BID Changed aspirin 81 mg Tablet,Delayed Release (Dr/Ec) 81 mg PO DAILY Qty: 30 0RF Rx Instructions: Over the counter Discontinued ketorolac [Toradol] 10 mg Tablet 10 mg PO Q6H PRN (Reason: Pain) Discharge Orders: Discharge Order (Routine); Ordered 05/30/22 Ordered By: Siri Mccrary Admission Data Admit Date/Time: 05/29/22 08:03 Attending Provider: Siri Mccrary Admit Provider: Giovanny Tripp Primary Care Provider: Tate Loza Other Providers: Giovanny Tripp ; Rajiv López ; Carlos Macias Coding Level of Care Code D/C DAY MANAGEMENT >30 MINS Diagnoses Non-ST elevation (NSTEMI) myocardial infarction I21.4 Tobacco abuse Z72.0 Restless leg syndrome G25.81 CAD (coronary artery disease) I25.10 HLD (hyperlipidemia) E78.5 HTN (hypertension) I10 Chronic low back pain M54.50; G89.29 Neuropathy G62.9 DVT (deep venous thrombosis) I82.409
--- NOTE | 2022-05-30 22:45 | Electrocardiogram Report ---
Test Reason : Blood Pressure : / mmHG Vent. Rate : 046 BPM Atrial Rate : 046 BPM P-R Int : 154 ms QRS Dur : 114 ms QT Int : 474 ms P-R-T Axes : 062 058 028 degrees QTc Int : 414 ms Sinus bradycardia Incomplete right bundle branch block Borderline ECG When compared with ECG of 28-MAY-2022 15:14, No significant change was found Confirmed by Rajiv López ([id number]) on 05/30/2022 10:44:55 PM Referred By: REFERRED SELF Confirmed By:Rajiv López
--- NOTE | 2022-05-30 23:03 | Electrocardiogram Report ---
Test Reason : Blood Pressure : / mmHG Vent. Rate : 050 BPM Atrial Rate : 050 BPM P-R Int : 160 ms QRS Dur : 104 ms QT Int : 466 ms P-R-T Axes : 052 038 019 degrees QTc Int : 424 ms Sinus bradycardia Incomplete right bundle branch block Cannot rule out Inferior infarct , age undetermined Abnormal ECG When compared with ECG of 28-MAY-2022 16:53, No significant change was found Confirmed by Rajiv López ([id number]) on 05/30/2022 11:02:51 PM Referred By: REFERRED SELF Confirmed By:Rajiv López
--- NOTE | 2022-05-31 06:02 | Electrocardiogram Report ---
Test Reason : Blood Pressure : / mmHG Vent. Rate : 049 BPM Atrial Rate : 049 BPM P-R Int : 156 ms QRS Dur : 112 ms QT Int : 468 ms P-R-T Axes : 060 024 000 degrees QTc Int : 422 ms Sinus bradycardia Incomplete right bundle branch block Possible Inferior infarct (cited on or before 28-MAY-2022) Abnormal ECG When compared with ECG of 28-MAY-2022 21:23, No significant change was found Confirmed by Rajiv López ([id number]) on 05/31/2022 6:02:27 AM Referred By: REFERRED SELF Confirmed By:Rajiv López
--- NOTE | 2022-05-31 21:55 | Electrocardiogram Report ---
Test Reason : Blood Pressure : / mmHG Vent. Rate : 057 BPM Atrial Rate : 057 BPM P-R Int : 148 ms QRS Dur : 110 ms QT Int : 464 ms P-R-T Axes : 031 026 002 degrees QTc Int : 451 ms Sinus bradycardia with Premature atrial complexes Possible Inferior infarct (cited on or before 28-MAY-2022) Abnormal ECG When compared with ECG of 29-MAY-2022 17:52, Premature atrial complexes are now Present Incomplete right bundle branch block is no longer Present T wave amplitude has increased in Anterior leads Confirmed by Rajiv López ([id number]) on 05/31/2022 9:55:42 PM Referred By: REFERRED SELF Confirmed By:Rajiv López
== END 2022-05-30 11:35 | disposition home or self-care (01) | DRG 247 ==
LOC: ED 11:21 → EDINP 11:21 → SUATTDRO 13:23 → EDINP 19:48 → 1E 21:36